=== PATIENT | female | born 1940 ===

== ENCOUNTER 2020-10-26 13:05 | IRF | payer MEDICARE, OTHER, SELFPAY ==
[2020-10-26 13:00] VITALS: BP 165/66; PULSE 80; RESP 20; TEMP 36.6; O2SAT 96; BMI 25.3
--- NOTE | 2020-10-26 13:33 | ADMGEN ---
This patient, Kelley Walker, was admitted to [facility] Room 225-01. Patient/family oriented to hospital policies and general routines including ID bracelet, bed and alarms, visiting hours, pain management, procedures, bathroom and other care routines, personal items, smoking policy, room service/diet, and visiting hours. Information on how to activate the Rapid Response Team has been discussed. Patient/Family are encouraged to report perceived risks to care and to ask questions if they do not understand what they are told or what they should do.
--- NOTE | 2020-10-26 15:16 | WPDREHABHP ---
H&P: HPI History of Present Illness Date/Time: 10/26/20 15:16 Chief Complaint: Lumbar myelopathy and radiculopathy left lower extremity Right footdrop Narrative: HISTORY OF PRESENT ILLNESS: The patient's primary rehab impairment category is neurological condition The etiologic diagnosis is lumbar radiculopathy I saw this patient [id number] on 10/26/2020 at 3:17 p.m. The patient is a 80-year-old female with past medical history of Parkinson's disease, bilateral carotid stenosis, hypertension, chronic back pain with radiculopathy to the LLE, right foot drop. Patient went to [facility] on 10/21/2020 for an elective spinal decompression. Workup revealed evidence of severe spinal stenosis affecting the T12 and L1 level. On 10/20/2020 the patient underwent a T11 through T12, T12-L1 posterior spinal decompression for central canal, lateral recess and foraminal stenosis. Patient also underwent a T12-L1 partial medial facetectomies. Hospital course patient received Ancef times 24 hours for postop. REGAN drain was removed on 10/22/2020. Postoperatively patient experienced acute blood loss anemia, acute postoperative pain, hypokalemia, leukocytosis, urinary retention, and postop encephalopathy. Patient is now hemodynamically stable, pain is being managed with oral medications. Hypokalemic is being monitored and repleted as necessary necessary. the urinary retention was treated with Flomax on 10/22/2020. Leukocytosis down trended was felt to be reactive. Postop confusion resolved. Patient will be discharged to rehab on aspirin 81 mg daily. Follow-up will be on 11/04/2020 at 11:[address] González JOE: The patient has not traveled outside the [place] are had contact with someone who is ill that his travel outside the [place] in the past 21 days. The patient has not traveled to an area of the [facility] that is experiencing no transmission of the Coronavirus and has not had close personal contact with anyone that has. Patient does not have a fever. The patient is not experiencing lower respiratory illness symptoms. Negative COVID test on 10/25/2020. Therapy was initiated at the acute care facility and the patient transferred to us from [facility] on 10/26/2020 FALLS OR SURGERIES: The patient has had major surgeries in the 100 days prior to admission. patient has T12-L1 posterior spinal decompression at [facility] on 10/20/2020. They had 2 falls in the past year. She had one fall with injury in the past year. Patient sustained a T9 rib fracture. PAST MEDICAL HISTORY: Parkinson's disease, dyskinesia, anxiety, hypertension, GERD, spinal stenosis with chronic back pain and lumbar radiculopathy, right footdrop, stage I diastolic function left ventricular ejection fraction of greater than 70%, coronary artery disease, arteriosclerotic heart disease, bilateral carotid stenosis, with left carotid stenosis being 50-69% right ICA stenosis of less than 50% stenosis, chronic bronchitis, osteoarthritis, hyperlipidemia, constipation, obstructive sleep apnea, history of falls, aortic valve sclerosis, sciatica, osteoarthritis of left ankle, stress incontinence of urine, myalgia, degenerative scoliosis, diverticulitis, abnormal stress test, cataracts, hearing loss, PAST SURGICAL HISTORY: back surgery 2010, cardiac catheterization 09/17/2020, cataract eye surgery, hysterectomy, tonsillectomy, and T11-L1 posterior spinal fusion on SOCIAL HISTORY: patient denies tobacco use, alcohol use, illicit drugs, the patient lives with her in a one-story home with 2 steps to enter. assisted with bathing and dressing for speed of completion. assisted with pulling up the pants during bathing and dressing. states that assistance was minimal to moderate assistance. assisted patients with steps requiring moderate assistance. FAMILY HISTORY: Mother had uterine cancer and heart
[2020-10-26] MEDS: DICYCLOMINE HCL 10 MG CAPSULE PO (17:09)
[2020-10-26] MEDS: ONDANSETRON HCL ODT 4 MG TABLET PO (17:09)
[2020-10-26] MEDS: CARBIDOPA/LEVODOPA 25/100 MG TABLET 2 TABLET PO (17:09)
[2020-10-26] MEDS: TAMSULOSIN HCL 0.4 MG CAPSULE PO (17:10)
[2020-10-26] MEDS: traMADol HCL (*CRX) 50 MG TABLET PO (17:24)
[2020-10-26] MEDS: ACETAMINOPHEN 500 MG TABLET 1000 MG PO ×2 (18:59→23:20)
[2020-10-26 20:40] VITALS: PULSE 66; RESP 16; O2SAT 98
[2020-10-26] MEDS: DOCUSATE SODIUM 100 MG CAPSULE PO (21:18)
[2020-10-26] MEDS: ASPIRIN 81 MG ENTERIC TABLET PO (21:18)
[2020-10-26] MEDS: ALPRAZolam (*CRX) 0.25 MG TABLET 0.5 MG PO (21:19)
[2020-10-26] MEDS: PARoxetine 20 MG TABLET PO (21:19)
[2020-10-26] MEDS: FAMOTIDINE 20 MG TABLET PO (21:19)
[2020-10-26] MEDS: ENOXAPARIN 30 MG/0.3 ML SYRINGE SUB-Q (21:19)
[2020-10-26 22:00] VITALS: BP 161/62; PULSE 66; RESP 16; TEMP 36.4; O2SAT 98
[2020-10-27 05:10] LABS: Basophils Percent Auto 0.4 % (0.2-1.2); Eosinophils Absolute Auto 0.2 K/mm3 (0-0.3); Hemoglobin 10.6 g/dL (12.0-15.0); Immature Granulocyte Absolute 0.01 K/mm3 (0.00-0.031); Immature Granulocyte Percent A 0.2 % (0-0.5); Lymphocytes Absolute Auto 2.19 K/mm3 (0.9-3.2); Mean Corpuscular HGB Conc 32.1 g/dl (32-36); Mean Corpuscular Hemoglobin 29.5 pg (26-34); Mean Corpuscular Volume 91.9 fl (80-100); Monocytes Absolute Auto 0.6 K/mm3 (0.1-0.6); Monocytes Percent Auto 12.8 % (2.6-8.5); Neutrophils Absolute Auto 1.7 K/mm3 (1.3-6.7); Neutrophils Percent Auto 35.6 % (45.5-73.1); Platelet Count Result 200 k/mm3 (150-375); Red Blood Count 3.59 M/mm3 (4.2-5.4); Red Cell Distribution Width 12.9 % (11.5-14.5); White Blood Count 4.8 K/mm3 (4.5-10.0)
[2020-10-27 05:19] LABS: Anion Gap 4 mmol/L (8-16); Blood Urea Nitrogen 10 mg/dL (7-17); Calcium 8.9 mg/dL (8.4-10.2); Carbon Dioxide 32 mmol/L (22-30); Chloride 104 mmol/L (98-107); Estimated Glomerular Filt Rate > 60; Glucose 98 mg/dL (65-105); Potassium 3.7 mmol/L (3.4-5.0); Sodium 140 mmol/L (137-145)
[2020-10-27] MEDS: ACETAMINOPHEN 500 MG TABLET 1000 MG PO ×4 (05:30→23:49)
[2020-10-27 05:44] VITALS: BP 151/61; PULSE 75; RESP 16; TEMP 36.2; O2SAT 98
[2020-10-27 08:00] VITALS: PULSE 75; RESP 16; O2SAT 98
[2020-10-27 09:48] VITALS: PULSE 75
[2020-10-27] MEDS: FAMOTIDINE 20 MG TABLET PO ×2 (09:48→20:33)
[2020-10-27] MEDS: atenoloL 25 MG TABLET PO (09:48)
[2020-10-27] MEDS: ISOSORBIDE MONONITRATE 15 MG TAB.ER.24H PO (09:49)
[2020-10-27] MEDS: DICYCLOMINE HCL 10 MG CAPSULE PO ×3 (09:49→17:00)
[2020-10-27] MEDS: PARoxetine 20 MG TABLET PO ×2 (09:49→20:34)
[2020-10-27] MEDS: OPTI-GEN TAB 1 TABLET PO (09:49)
[2020-10-27] MEDS: ATORVASTATIN 40 MG TABLET PO (09:49)
[2020-10-27] MEDS: LOSARTAN POTASSIUM 50 MG TABLET PO (09:49)
[2020-10-27] MEDS: CHOLECALCIFEROL 1,000 UNITS TABLET 1000 UNITS PO (09:49)
[2020-10-27] MEDS: ONDANSETRON HCL ODT 4 MG TABLET PO ×3 (09:50→17:00)
[2020-10-27] MEDS: MICONAZOLE NITRATE 2% CREAM 30 GM TUBE 1 APPLIC TOPICAL ×3 (09:50→17:05)
[2020-10-27] MEDS: CARBIDOPA/LEVODOPA 25/100 MG TABLET 2 TABLET PO ×3 (09:50→17:00)
[2020-10-27] MEDS: traMADol HCL (*CRX) 50 MG TABLET PO ×2 (09:55→20:34)
[2020-10-27] MEDS: polyethylene glycoL 3350 17 GM POWD.PACK PO (10:01)
--- NOTE | 2020-10-27 10:40 | WPDNEURORHBP ---
Subjective Date/time seen: 10/27/20 10:40 80-year-old female who underwent T11-L1 spinal decompression at [facility] julia to severe spinal stenosis at T12 and L1 Postop course was noted for confusion, blood loss anemia, postop pain, electrolyte imbalance,urinary retention patient was started on Flomax. patient has demonstrated ongoing urinary incontinence which is acute on chronic. Patient is to have a follow-up with Dr. Claudio at [facility] on 11/04/2020 at 11:45 a.m.. Past medical history significant for Parkinson's disease, bilateral carotid stenosis, hypertension, chronic back pain with radiculopathy and right footdrop, recent left lower extremity pain and weakness being present. Anxiety is elevated . last night, patient became very anxious and wanting to go home. was present and was able to come her down and she was willing to stay to complete the rehab course. Review of Systems Review of Systems: All systems reviewed & are unremarkable except as noted in HPI and below Exam Narrative: Exam Narrative: Head is normocephalic. Extraocular muscles are intact. Neck is supple. Lungs are clear to auscultation. Heart rate and rhythm is regular. Abdomen is obese. Bilateral upper extremity strength are 4-5 right lower extremity strength is 4- out of 5 except at the ankle being 0/5. Left lower extremity strength is 3+ to 4-. Mood is calm. Objective Data Vital Signs Vital Signs: Vital Signs - 24 hr 10/26/20 13:00 10/26/20 20:40 10/26/20 22:00 Temperature 36.6 C 36.4 C Pulse Rate 80 66 66 Respiratory Rate 20 16 16 Blood Pressure 165/66 H 161/62 H Pulse Oximetry 96 98 98 10/27/20 05:44 10/27/20 08:00 10/27/20 09:48 Temperature 36.2 C L Pulse Rate 75 75 75 Respiratory Rate 16 16 Blood Pressure 151/61 H Pulse Oximetry 98 98 Intake/Output Intake/Output: Intake & Output 10/24/20 10/25/20 10/26/20 10/27/20 23:59 23:59 23:59 23:59 Intake Total 120 240 Balance 120 240 Meds/Results Medications: Active Medications Generic Name Dose Route Start Last Admin Trade Name Freq PRN Reason Stop Dose Admin Acetaminophen 1,000 mg 10/26/20 18:00 10/27/20 05:30 Acetaminophen 500 Mg Tablet PO 1,000 mg Q6HR PARAG Administration Alprazolam 0.25 mg 10/26/20 15:02 Alprazolam (*Crx) 0.25 Mg Tablet PO HS PRN Anxiety Alprazolam 0.5 mg 10/26/20 15:02 10/26/20 21:19 Alprazolam (*Crx) 0.25 Mg Tablet PO 0.5 mg HS PRN Administration Anxiety Aspirin 81 mg 10/26/20 21:00 10/26/20 21:18 Aspirin 81 Mg Enteric Tablet PO 81 mg HS PARAG Administration Atenolol 25 mg 10/27/20 09:00 10/27/20 09:48 Atenolol 25 Mg Tablet PO 25 mg DAILY PARAG Administration Atorvastatin Calcium 40 mg 10/27/20 09:00 10/27/20 09:49 Atorvastatin 40 Mg Tablet PO 40 mg DAILY PARAG Administration Carbidopa/Levodopa 2 tablet 10/26/20 18:00 10/27/20 09:50 Carbidopa/Levodopa 25/100 Mg Tablet PO 2 tablet 0800,1200,1800 PARAG Administration Cyclobenzaprine HCl 5 mg 10/26/20 15:02 Cyclobenzaprine Hcl 5 Mg Tablet PO Q8H PRN Muscle Spasm Dicyclomine HCl 10 mg 10/26/20 17:00 10/27/20 09:49 Dicyclomine Hcl 10 Mg Capsule PO 10 mg 0800,1200,1700 PARAG Administration Docusate Sodium 100 mg 10/26/20 21:00 10/26/20 21:18 Docusate Sodium 100 Mg Capsule PO 100 mg HS PARAG Administration Enoxaparin Sodium 30 mg 10/26/20 21:00 10/26/20 21:19 Enoxaparin 30 Mg/0.3 Ml Syringe SUB-Q 30 mg HS PARAG Administration Famotidine 20 mg 10/26/20 21:00 10/27/20 09:48 Famotidine 20 Mg Tablet PO 20 mg Q12HR PARAG Administration Isosorbide Mononitrate 15 mg 10/27/20 09:00 10/27/20 09:49 Isosorbide Mononitrate 15 Mg Tab.Er.24h PO 15 mg DAILY PARAG Administration Losartan Potassium 50 mg 10/27/20 09:00 10/27/20 09:49 Losartan Potassium 50 Mg Tablet PO 50 mg DAILY PARAG Administration Miconazole Nitrate 1 a
[2020-10-27 13:13] VITALS: BMI 25.3
[2020-10-27 14:00] VITALS: BP 108/47; PULSE 65; RESP 16; TEMP 36.2; O2SAT 95
[2020-10-27] MEDS: TAMSULOSIN HCL 0.4 MG CAPSULE PO (17:00)
[2020-10-27] MEDS: ASPIRIN 81 MG ENTERIC TABLET PO (20:33)
[2020-10-27] MEDS: DOCUSATE SODIUM 100 MG CAPSULE PO (20:33)
[2020-10-27] MEDS: ENOXAPARIN 30 MG/0.3 ML SYRINGE SUB-Q (20:33)
[2020-10-27 20:35] VITALS: BP 144/51; PULSE 72; RESP 18; TEMP 35.9; O2SAT 99
[2020-10-27] MEDS: ALPRAZolam (*CRX) 0.25 MG TABLET PO (20:36)
[2020-10-27] MEDS: CYCLOBENZAPRINE HCL 5 MG TABLET PO (20:36)
[2020-10-28] MEDS: ACETAMINOPHEN 500 MG TABLET 1000 MG PO ×3 (05:18→17:48)
[2020-10-28 05:22] VITALS: BP 136/66; PULSE 76; RESP 18; TEMP 35.9; O2SAT 100
[2020-10-28] MEDS: CARBIDOPA/LEVODOPA 25/100 MG TABLET 2 TABLET PO ×3 (07:55→16:43)
[2020-10-28] MEDS: ONDANSETRON HCL ODT 4 MG TABLET PO ×3 (07:55→17:47)
[2020-10-28] MEDS: DICYCLOMINE HCL 10 MG CAPSULE PO ×3 (07:55→16:44)
[2020-10-28 08:28] VITALS: PULSE 74
[2020-10-28] MEDS: polyethylene glycoL 3350 17 GM POWD.PACK PO (08:28)
[2020-10-28] MEDS: atenoloL 25 MG TABLET PO (08:28)
[2020-10-28] MEDS: MICONAZOLE NITRATE 2% CREAM 30 GM TUBE 1 APPLIC TOPICAL ×3 (08:28→16:44)
[2020-10-28] MEDS: FAMOTIDINE 20 MG TABLET PO ×2 (08:28→19:45)
[2020-10-28] MEDS: PARoxetine 20 MG TABLET PO ×2 (08:28→19:45)
[2020-10-28] MEDS: ATORVASTATIN 40 MG TABLET PO (08:29)
[2020-10-28] MEDS: LOSARTAN POTASSIUM 50 MG TABLET PO (08:29)
[2020-10-28] MEDS: ISOSORBIDE MONONITRATE 15 MG TAB.ER.24H PO (08:29)
[2020-10-28] MEDS: OPTI-GEN TAB 1 TABLET PO (08:29)
[2020-10-28] MEDS: CHOLECALCIFEROL 1,000 UNITS TABLET 1000 UNITS PO (08:29)
[2020-10-28] MEDS: CYCLOBENZAPRINE HCL 5 MG TABLET PO (11:26)
--- NOTE | 2020-10-28 11:29 | PCSTNOTE ---
Please refer to the Bedside Swallow Evaluation in the EMR. Please note, silent aspiration cannot be ruled out at bedside.
--- NOTE | 2020-10-28 12:06 | WPDNEURORHBP ---
Subjective Date/time seen: 10/28/20 12:06 Interval history: this is a 80-year-old female with past medical history of Parkinson's disease bilateral carotid stenosis, hypertension, and chronic back pain with radiculopathy who presented to [facility] on 10/21/2020 for elective spinal decompression. Postoperatively patient experienced acute blood loss anemia, acute postoperative pain, hypokalemia, leukocytosis, urinary retention and confusion. Patient was started on Flomax on 10/22/2020 for urinary retention. patient remains anxious. Patient voices no other complaints. Review of Systems Review of Systems: All systems reviewed & are unremarkable except as noted in HPI and below Functional Status Ambulation Ability Ambulation Assistive Devices: Parallel Bars Exam Narrative: Exam Narrative: Patient is resting comfortably. Head is normocephalic. Tremors are improved from admission. Heart rate and rhythm is regular. Lungs are clear to auscultation. Abdomen is obese. Gait was 8 feet in parallel bars. Transfers are mod assist. Objective Data Vital Signs Vital Signs: Vital Signs - 24 hr 10/27/20 14:00 10/27/20 20:35 10/28/20 05:22 Temperature 36.2 C L 35.9 C L 35.9 C L Pulse Rate 65 72 76 Respiratory Rate 16 18 18 Blood Pressure 108/47 L 144/51 H 136/66 Pulse Oximetry 95 99 100 10/28/20 08:28 Temperature Pulse Rate 74 Respiratory Rate Blood Pressure Pulse Oximetry Intake/Output Intake/Output: Intake & Output 10/25/20 10/26/20 10/27/20 10/28/20 23:59 23:59 23:59 23:59 Intake Total 120 600 240 Balance 120 600 240 Meds/Results Medications: Active Medications Generic Name Dose Route Start Last Admin Trade Name Freq PRN Reason Stop Dose Admin Acetaminophen 1,000 mg 10/26/20 18:00 10/28/20 11:24 Acetaminophen 500 Mg Tablet PO 1,000 mg Q6HR PARAG Administration Alprazolam 0.25 mg 10/26/20 15:02 10/27/20 20:36 Alprazolam (*Crx) 0.25 Mg Tablet PO 0.25 mg HS PRN Administration Anxiety Alprazolam 0.5 mg 10/26/20 15:02 10/26/20 21:19 Alprazolam (*Crx) 0.25 Mg Tablet PO 0.5 mg HS PRN Administration Anxiety Aspirin 81 mg 10/26/20 21:00 10/27/20 20:33 Aspirin 81 Mg Enteric Tablet PO 81 mg HS PARAG Administration Atenolol 25 mg 10/27/20 09:00 10/28/20 08:28 Atenolol 25 Mg Tablet PO 25 mg DAILY PARAG Administration Atorvastatin Calcium 40 mg 10/27/20 09:00 10/28/20 08:29 Atorvastatin 40 Mg Tablet PO 40 mg DAILY PARAG Administration Carbidopa/Levodopa 2 tablet 10/28/20 07:00 10/28/20 11:24 Carbidopa/Levodopa 25/100 Mg Tablet PO 2 tablet 0700,1100,1600 PARAG Administration Cyclobenzaprine HCl 5 mg 10/26/20 15:02 10/28/20 11:26 Cyclobenzaprine Hcl 5 Mg Tablet PO 5 mg Q8H PRN Administration Muscle Spasm Dicyclomine HCl 10 mg 10/26/20 17:00 10/28/20 11:25 Dicyclomine Hcl 10 Mg Capsule PO 10 mg 0800,1200,1700 PARAG Administration Docusate Sodium 100 mg 10/26/20 21:00 10/27/20 20:33 Docusate Sodium 100 Mg Capsule PO 100 mg HS PARAG Administration Enoxaparin Sodium 30 mg 10/26/20 21:00 10/27/20 20:33 Enoxaparin 30 Mg/0.3 Ml Syringe SUB-Q 30 mg HS PARAG Administration Famotidine 20 mg 10/26/20 21:00 10/28/20 08:28 Famotidine 20 Mg Tablet PO 20 mg Q12HR PARAG Administration Isosorbide Mononitrate 15 mg 10/27/20 09:00 10/28/20 08:29 Isosorbide Mononitrate 15 Mg Tab.Er.24h PO 15 mg DAILY PARAG Administration Losartan Potassium 50 mg 10/27/20 09:00 10/28/20 08:29 Losartan Potassium 50 Mg Tablet PO 50 mg DAILY PARAG Administration Miconazole Nitrate 1 applic 10/26/20 17:00 10/28/20 08:28 Miconazole Nitrate 2% Cream 30 Gm Tube TOPICAL 1 applic TID PARAG Administration Multivitamins/Minerals 1 tablet 10/27/20 09:00 10/28/20 08:29 Opti-Gen Tab PO 1 tablet DAILY PARAG Administration Olopatadine HCl 1 drop 10/26/20 15:02 Olopatadi
[2020-10-28 14:00] VITALS: BP 136/45; PULSE 54; RESP 18; TEMP 36.4; O2SAT 96
--- NOTE | 2020-10-28 15:40 | RPD ---
INDIVIDUALIZED PLAN OF CARE FOR Kelley Walker Brief Synthesis of Pre-Admission Screen, Post-Admission Evaluation and Therapy Evaluations: The patient presents to rehab with Lumbar radiculopathy. Comorbidities include thoracolumbar spondylosis, thoracolumbar stenosis, myeloradiculopathy, Parkinson's disease, dyskinesia, anxiety, hypertension, GERD, spinal stenosis, stage 1 diastolic function LVEF >70%, CAD, COPD, osteoarthritis, hyperlipidemia, constipation, LORY, arteriosclerotic heart disease, bilateral carotid stenosis, mitral valve prolapse, stress incontinence of urine. . The patient requires physician services for medical oversight, management of post-op complications in setting of present comorbidities, and pain management. The patient requires nursing services for anticoagulation therapy, diabetes training, DVT prophylactics, infection protection, medication management and education, pressure relief, and wound care. Deficits include:ADLs, Balance, Endurance, Family Training/Education, Mobility, Pain Management, ROM, Safety, Strength, Transfers Developer Advocate/Case Management for: Discharge Planning and Patient/Family Counseling Physical Therapy: 5 days per week for 90 minutes for the anticipated length of stay. Treatments may include: Therapeutic Exercise, Gait Training, Neuromuscular Re-education, Transfer Training, Community Reintegration, Bed Mobility, Patient/Family Education, Wheelchair Mobility Group Therapy/Concurrent Therapy Rationales: -Improve attention span during functional activities in a distracted environment. -Enhance problem solving and/or adequate judgment skills during functional activities in a distracted environment. -Promote increased safety awareness in a distracted environment to reduce fall risk with functional tasks, transfers, and ambulation to allow a more safe, self-sufficient return to the home environment. -Improve dynamic balance skills to promote safety and independence with functional activities in a distracted environment for maximum gain. Occupational Therapy: 5 days per week for 90 minutes for the anticipated length of stay. Treatments may include: Therapeutic Exercise, Therapeutic Activity, Cognitive Training, Self-Care Transfer Training, Community Reintegration, Home Management, Patient/Family Education, Wheelchair Mobility Training, Energy Conservation Training Group Therapy/Concurrent Therapy Rationales: -Allow therapist to observe and teach generalization and carry-over of skills learned in individual therapy. -Enhance problem solving and sequencing skills during therapeutic activities in a distracted environment. -Promote increased safety awareness in a realistic setting to reduce fall risk with functional tasks due to visual and verbal distractions. -Increase functional level with ADLs, ADL transfers and use of adaptive equipment through therapeutic activities with others while promoting safety to allow a more safe, self-sufficient return home. Medical Prognosis: Good Anticipated Length of Stay: 10 days Rehab Goals: Eating Goal: 06-Independent Oral Hygiene Goal: 06-Independent Toileting Hygiene Goal: 04-Supervision or Touching Assistance Shower/Bathe Self Goal: 04-Supervision or Touching Assistance Upper Body Dressing Goal: 05-Setup or Clean Up Assistance Lower Body Dressing Goal: 04-Supervision or Touching Assistance Putting On/Taking Off Footwear Goal: 04-Supervision or Touching Assistance Rolling Left and Right Goal: 06-Independent Sit to Lying Goal: 06-Independent Lying to Sitting on Side of Bed Goal: 06-Independent Sit to Stand Goal: 04-Supervision or Touching Assistance Chair/Ueq-zv-Jdmld Transfer Goal: 04-Supervision or Touching Assistance Toilet Transfer Goal: 04-Supervision or Touching Assistance Car Transfer Goal: 04-Supervision or Touching Assistance Walk 10' Goal: 04-Supervision or Touching Assistance Walk 50' with Two Turns Goal: 04-Supervision or Touching Assistance Walk 150' Goal: 09-N
[2020-10-28] MEDS: TAMSULOSIN HCL 0.4 MG CAPSULE PO (17:47)
[2020-10-28] MEDS: traMADol HCL (*CRX) 50 MG TABLET PO (19:41)
[2020-10-28] MEDS: DOCUSATE SODIUM 100 MG CAPSULE PO (19:44)
[2020-10-28] MEDS: ENOXAPARIN 30 MG/0.3 ML SYRINGE SUB-Q (19:44)
[2020-10-28] MEDS: ASPIRIN 81 MG ENTERIC TABLET PO (19:45)
[2020-10-28 20:24] VITALS: BP 123/56; PULSE 56; RESP 18; TEMP 36.4; O2SAT 97
[2020-10-29] MEDS: ALPRAZolam (*CRX) 0.25 MG TABLET PO (00:44)
[2020-10-29] MEDS: ACETAMINOPHEN 500 MG TABLET 1000 MG PO ×4 (00:44→17:51)
[2020-10-29 05:23] VITALS: BP 140/56; PULSE 80; RESP 18; TEMP 36.5; O2SAT 100
[2020-10-29] MEDS: CYCLOBENZAPRINE HCL 5 MG TABLET PO ×4 (06:39→20:15)
[2020-10-29] MEDS: CARBIDOPA/LEVODOPA 25/100 MG TABLET 2 TABLET PO ×3 (06:39→16:28)
[2020-10-29 08:00] VITALS: PULSE 80; RESP 18; O2SAT 100
[2020-10-29 08:37] VITALS: PULSE 80
[2020-10-29] MEDS: FAMOTIDINE 20 MG TABLET PO ×2 (08:37→20:16)
[2020-10-29] MEDS: PARoxetine 20 MG TABLET PO ×2 (08:37→20:16)
[2020-10-29] MEDS: ONDANSETRON HCL ODT 4 MG TABLET PO ×3 (08:37→17:51)
[2020-10-29] MEDS: LOSARTAN POTASSIUM 50 MG TABLET PO (08:37)
[2020-10-29] MEDS: CHOLECALCIFEROL 1,000 UNITS TABLET 1000 UNITS PO (08:37)
[2020-10-29] MEDS: DICYCLOMINE HCL 10 MG CAPSULE PO ×3 (08:37→16:28)
[2020-10-29] MEDS: atenoloL 25 MG TABLET PO (08:37)
[2020-10-29] MEDS: ISOSORBIDE MONONITRATE 15 MG TAB.ER.24H PO (08:37)
[2020-10-29] MEDS: OPTI-GEN TAB 1 TABLET PO (08:38)
[2020-10-29] MEDS: polyethylene glycoL 3350 17 GM POWD.PACK PO (08:38)
[2020-10-29] MEDS: ATORVASTATIN 40 MG TABLET PO (08:38)
[2020-10-29] MEDS: MICONAZOLE NITRATE 2% CREAM 30 GM TUBE 1 APPLIC TOPICAL ×3 (08:38→16:28)
--- NOTE | 2020-10-29 12:11 | WPDNEURORHBP ---
Subjective Date/time seen: 10/29/20 12:11 Interval history: this is a 80-year-old female with past medical history of Parkinson's disease bilateral carotid stenosis, hypertension, and chronic back pain with radiculopathy who presented to [facility] on 10/21/2020 for elective spinal decompression. Postoperatively patient experienced acute blood loss anemia, acute postoperative pain, hypokalemia, leukocytosis, urinary retention and confusion. Patient was started on Flomax on 10/22/2020 for urinary retention. Patient complains of bilateral hip pain left worse than right. Patient admits to muscle spasm and pain. Review of Systems Review of Systems: All systems reviewed & are unremarkable except as noted in HPI and below Constitutional: Constitutional: Reports frequent falls, Reports headache(s) and Reports weakness ENT: Reports headache(s) Cardiovascular: Cardiovascular: Reports dyspnea on exertion Respiratory: Respiratory: Reports as per HPI and Reports dyspnea on exertion Genitourinary: Genitourinary: Reports urinary incontinence and Reports urinary urgency Musculoskeletal: Musculoskeletal: Reports abnormal gait, Reports back pain, Reports myalgias and Reports muscle weakness Integumentary/Breasts: Skin/Breast: Reports system reviewed and no additional complaints, except as docu Neurologic: Reports Neuro-related abnormal movements, Reports abnormal gait, Reports frequent falls, Reports headache(s) and Reports weakness Psychiatric: Psychiatric: Reports anxiety Functional Status Ambulation Ability Ambulation Assistive Devices: Parallel Bars Exam Narrative: Exam Narrative: Head is normocephalic. External ocular muscles are intact. Neck is supple. Heart rate and rhythm is regular. Lungs are clear to auscultation. Abdomen is obese. Bilateral upper extremity strength are 4/5. Right lower extremity reveals a right footdrop. Left lower extremity strength is 3-4 throughout. Patient is unable to sit still due to pain and spasm. Parkinson's tremors are minimal. But patient has writhing-like movement patient's transfers are moderate assistance. Objective Data Vital Signs Vital Signs: Vital Signs - 24 hr 10/28/20 14:00 10/28/20 20:24 10/29/20 05:23 Temperature 36.4 C L 36.4 C 36.5 C Pulse Rate 54 L 56 L 80 Respiratory Rate 18 18 18 Blood Pressure 136/45 L 123/56 L 140/56 L Pulse Oximetry 96 97 100 10/29/20 08:37 Temperature Pulse Rate 80 Respiratory Rate Blood Pressure Pulse Oximetry Intake/Output Intake/Output: Intake & Output 10/26/20 10/27/20 10/28/20 10/29/20 23:59 23:59 23:59 23:59 Intake Total 120 600 720 120 Balance 120 600 720 120 Meds/Results Medications: Active Medications Generic Name Dose Route Start Last Admin Trade Name Arielq PRN Reason Stop Dose Admin Acetaminophen 1,000 mg 10/26/20 18:00 10/29/20 11:36 Acetaminophen 500 Mg Tablet PO 1,000 mg Q6HR PARAG Administration Alprazolam 0.25 mg 10/26/20 15:02 10/29/20 00:44 Alprazolam (*Crx) 0.25 Mg Tablet PO 0.25 mg HS PRN Administration Anxiety Alprazolam 0.5 mg 10/26/20 15:02 10/26/20 21:19 Alprazolam (*Crx) 0.25 Mg Tablet PO 0.5 mg HS PRN Administration Anxiety Aspirin 81 mg 10/26/20 21:00 10/28/20 19:45 Aspirin 81 Mg Enteric Tablet PO 81 mg HS PARAG Administration Atenolol 25 mg 10/27/20 09:00 10/29/20 08:37 Atenolol 25 Mg Tablet PO 25 mg DAILY PARAG Administration Atorvastatin Calcium 40 mg 10/27/20 09:00 10/29/20 08:38 Atorvastatin 40 Mg Tablet PO 40 mg DAILY PARAG Administration Carbidopa/Levodopa 2 tablet 10/28/20 07:00 10/29/20 11:35 Carbidopa/Levodopa 25/100 Mg Tablet PO 2 tablet 0700,1100,1600 PARAG Administration Cyclobenzaprine HCl 5 mg 10/29/20 10:36 Cyclobenzaprine Hcl 5 Mg Tablet PO Q8H PRN Muscle Spasm Cyclobenzaprine HCl 5 mg 10/29/20 11:30 10/29/20 10:35 Cyclobenzaprine Hcl 5 Mg Tablet PO 5
[2020-10-29 14:00] VITALS: BP 137/84; PULSE 84; RESP 18; TEMP 36.5; O2SAT 96
--- NOTE | 2020-10-29 14:48 | PC.NURSE ---
Dr. Arreola wanted an MRI of cervical spine done today but patient is refusing. Patient states she does not want the MRI today. Wants to wait. Notified Dr. Arreola and will continue to monitor.
--- NOTE | 2020-10-29 14:50 | WPDNEURCNPN ---
Assessment and Plan Assessment and plan (1) Lumbar myelopathy: Code(s): G95.9 - Disease of spinal cord, unspecified Status: Acute (2) S/P spinal fusion: Code(s): Z98.1 - Arthrodesis status Status: Acute (3) Footdrop: Code(s): M21.379 - Foot drop, unspecified foot Status: Acute (4) Parkinsons disease: Code(s): G20 - Parkinson's disease Status: Acute Additional Plan elderly lady with Parkinson's disease receiving carbidopa levodopa 2502 tabs 3 times a day there is no obvious evidence of dyskinesia considering the history of right footdrop I wanted to make sure that we rule out the possibility of cervical myelopathy but at this stage patient is reluctant to have the MRI of cervical spine we will defer the treatment will be continued as such Consult date: 10/29/20 Time Seen: 14:00 HPI: Kelley Walker is a 80 year old female 80 years old lady has been admitted to [facility] rehab floor under the care of Dr. candida Morris with the diagnosis of lumbar myelopathy and radiculopathy of left lower extremity in addition to the comorbid condition of 1. Parkinson disease 2. Bilateral carotid stenosis 3. Hypertension 4. Chronic back and 5. Right foot drop patient has undergone elective spinal decompression at [facility] see neuro consultation has been obtained because of the underlying Parkinson disease and also complains of intermittent spasm. patient is receiving aspirin 81 mg daily with atorvastatin 40 mg daily and carbidopa levodopa 2 tablets 3 times a day each 25/100 mg Review of Systems Review of Systems: All systems reviewed & are unremarkable except as noted in HPI and below PMFSH Family History Family History Father Glaucoma (increased eye pressure) Mother Hypertension Social History Social History Alcohol intake: never Substance use: never Spiritual care concerns: No Meds Home Medications and Allergies Home Medications Medication Instructions Recorded Confirmed Type acetaminophen 1,000 mg PO Q6H 10/26/20 10/26/20 History alprazolam 0.25 mg PO HS PRN 10/26/20 10/26/20 History alprazolam 0.5 mg PO HS PRN 10/26/20 10/26/20 History aspirin 81 mg PO HS 10/26/20 10/26/20 History atenolol 25 mg PO DAILY 10/26/20 10/26/20 History atorvastatin 40 mg PO DAILY 10/26/20 10/26/20 History carbidopa-levodopa 2 tablet PO TIDWM 10/26/20 10/26/20 History cholecalciferol (vitamin D3) 25 mcg PO DAILY 10/26/20 10/26/20 History cyclobenzaprine 5 mg PO Q8H PRN 10/26/20 10/26/20 History dicyclomine 10 mg PO TID 10/26/20 10/26/20 History docusate sodium 100 mg PO HS 10/26/20 10/26/20 History enoxaparin 30 mg SUBCUT HS 10/26/20 10/26/20 History famotidine 20 mg PO Q12H 10/26/20 10/26/20 History fish oil-dha-epa 1 cap PO DAILY 10/26/20 10/26/20 History isosorbide mononitrate 15 mg PO DAILY 10/26/20 10/26/20 History losartan 50 mg PO DAILY 10/26/20 10/26/20 History nystatin 1 applic TOPICAL TID 10/26/20 10/26/20 History olopatadine 1 drp EACH EYE HS PRN 10/26/20 10/26/20 History ondansetron 4 mg PO TID 10/26/20 10/26/20 History paroxetine HCl 20 mg PO Q12H 10/26/20 10/26/20 History polyethylene glycol 3350 17 g PO DAILY 10/26/20 10/26/20 History tamsulosin 0.4 mg PO QPM 10/26/20 10/26/20 History tramadol 50 mg PO Q6H PRN 10/26/20 10/26/20 History vit C,B-Pc-bbkzi-lutein-zeaxan 1 cap PO DAILY 10/26/20 10/26/20 History [Ocuvite Lutein and Zeaxanthin] Allergies Allergy/AdvReac Type Severity Reaction Status Date / Time clarithromycin Allergy Other Verified 10/26/20 13:35 oxycodone Allergy Hallucinati Verified 10/26/20 13:35 ng prednisone Allergy Other Verified 10/26/20 13:35 Vital Signs Vital Signs - 24 hr 10/28/20 20:24 10/29/20 05:23 10/29/20 08:00 Temperature 36.4 C 36.5 C Pulse Rate 56 L 80 80 Respiratory Rate 18 18 18 Blood Pressure 123/56 L 140/56 L Pulse Oximetry 97 10
[2020-10-29] MEDS: TAMSULOSIN HCL 0.4 MG CAPSULE PO (17:52)
[2020-10-29] MEDS: ASPIRIN 81 MG ENTERIC TABLET PO (20:15)
[2020-10-29] MEDS: DOCUSATE SODIUM 100 MG CAPSULE PO (20:15)
[2020-10-29] MEDS: ENOXAPARIN 30 MG/0.3 ML SYRINGE SUB-Q (20:16)
[2020-10-29] MEDS: traMADol HCL (*CRX) 50 MG TABLET PO (20:17)
[2020-10-29] MEDS: ALPRAZolam (*CRX) 0.25 MG TABLET 0.5 MG PO (20:17)
[2020-10-29 22:00] VITALS: BP 129/47; PULSE 62; RESP 14; TEMP 36.2; O2SAT 96
[2020-10-30] MEDS: ACETAMINOPHEN 500 MG TABLET 1000 MG PO ×4 (00:19→16:59)
[2020-10-30 04:57] VITALS: BP 148/61; PULSE 64; RESP 16; TEMP 36.1; O2SAT 98
[2020-10-30] MEDS: CYCLOBENZAPRINE HCL 5 MG TABLET PO ×4 (06:45→20:56)
[2020-10-30] MEDS: CARBIDOPA/LEVODOPA 25/100 MG TABLET 2 TABLET PO ×3 (06:45→16:58)
[2020-10-30 08:00] VITALS: PULSE 64; RESP 16; O2SAT 98
[2020-10-30] MEDS: LOSARTAN POTASSIUM 50 MG TABLET PO (08:31)
[2020-10-30] MEDS: ATORVASTATIN 40 MG TABLET PO (08:31)
[2020-10-30] MEDS: FAMOTIDINE 20 MG TABLET PO ×2 (08:31→20:54)
[2020-10-30] MEDS: DICYCLOMINE HCL 10 MG CAPSULE PO ×3 (08:31→16:59)
[2020-10-30] MEDS: CHOLECALCIFEROL 1,000 UNITS TABLET 1000 UNITS PO (08:31)
[2020-10-30 08:32] VITALS: PULSE 64
[2020-10-30] MEDS: OPTI-GEN TAB 1 TABLET PO (08:32)
[2020-10-30] MEDS: atenoloL 25 MG TABLET PO (08:32)
[2020-10-30] MEDS: ONDANSETRON HCL ODT 4 MG TABLET PO ×3 (08:32→17:00)
[2020-10-30] MEDS: ISOSORBIDE MONONITRATE 15 MG TAB.ER.24H PO (08:32)
[2020-10-30] MEDS: PARoxetine 20 MG TABLET PO ×2 (08:33→20:54)
[2020-10-30] MEDS: polyethylene glycoL 3350 17 GM POWD.PACK PO (08:33)
[2020-10-30] MEDS: traMADol HCL (*CRX) 50 MG TABLET PO ×2 (08:50→20:56)
--- NOTE | 2020-10-30 10:10 | WPDNEURORHBP ---
Subjective Date/time seen: 10/30/20 10:10 Interval history: this is a 80-year-old female with past medical history of Parkinson's disease bilateral carotid stenosis, hypertension, and chronic back pain with radiculopathy who presented to [facility] on 10/21/2020 for elective spinal decompression. Postoperatively patient experienced acute blood loss anemia, acute postoperative pain, hypokalemia, leukocytosis, urinary retention and confusion. Patient was started on Flomax on 10/22/2020 for urinary retention. Patient complains of bilateral hip pain left worse than right. Patient admits to muscle spasm and pain. Patient's dyskinesia elicits pain to surgical site. Dr Arreola has been consulted. Review of Systems Review of Systems: All systems reviewed & are unremarkable except as noted in HPI and below Constitutional: Constitutional: Reports frequent falls, Reports headache(s) and Reports weakness ENT: Reports headache(s) Cardiovascular: Cardiovascular: Reports dyspnea on exertion Respiratory: Respiratory: Reports as per HPI and Reports dyspnea on exertion Genitourinary: Genitourinary: Reports urinary incontinence and Reports urinary urgency Musculoskeletal: Musculoskeletal: Reports abnormal gait, Reports back pain, Reports myalgias and Reports muscle weakness Integumentary/Breasts: Skin/Breast: Reports system reviewed and no additional complaints, except as docu Neurologic: Reports Neuro-related abnormal movements, Reports abnormal gait, Reports frequent falls, Reports headache(s), Reports Sensory deficit (Neuro) ( distally) and Reports weakness Psychiatric: Psychiatric: Reports anxiety Functional Status Ambulation Ability Ambulation Assistive Devices: Parallel Bars Exam Narrative: Exam Narrative: Head is normocephalic. External ocular muscles are intact. Neck is supple. Heart rate and rhythm is regular. Lungs are clear to auscultation. Abdomen is obese. Bilateral upper extremity strength are 4/5. Right lower extremity reveals a right footdrop. Left lower extremity strength is 3-4 throughout. Patient's PD is better controlled this morning. Back pain is less Const: General: cooperative, comfortable and no acute distress Nutritional Appearance: average body habitus Orientation/consciousness: oriented to person, oriented to place, oriented to time and patient oriented x3 HENMT: Head: normocephalic Ears: hearing grossly normal bilaterally General nose exam: Normal external nose present Mouth: Yes Normal oral and palatal mucosa present Eyes: Visual Robert: normal visual robert by confrontation Alignment and Position: alignment normal Eyelids: eyelids normal Conjunctivae: conjunctivae normal Sclera: sclerae normal Cornea: corneas normal Pupils: Equal, round and reactive pupils present Neck: Neck: full ROM and no lymphadenopathy Chest: Chest palpation & inspection: normal inspection of the chest Resp: Effort & Inspection: normal respiratory effort Auscultation: clear to auscultation bilaterally Cardio: Rate: regular rate Rhythm: regular rhythm Neuro: General: oriented to person, oriented to place, oriented to time, patient oriented x3, moves all extremities and Unable to assess gait Cranial nerves: Yes CN's II-XII intact bilaterally and Yes Equal, round and reactive pupils present Speech: normal speech Gait exam (Neuro): Unable to assess gait Motor exam (neuro): Abnormal motor strength present ( right foot drop) Sensory Exam: Sensory deficit (Neuro) ( distally) Deep tendon reflexes (DTR's): Right triceps reflex intensity grade: 1+, Left triceps reflex intensity grade: 1+, Rt Biceps (C5, C6): 1+, Left biceps reflex intensity grade: 1+, Right brachioradialis reflex intensity grade: 1+, Left brachioradialis reflex intensity grade: 1+, Right patellar reflex intensity grade: 1+ and Left patellar reflex intensity grade: 1+ Plantar Reflex Responses: equivocal: bilateral Psych: Appearance: grossly normal Ob
[2020-10-30 14:00] VITALS: BP 143/55; PULSE 74; RESP 16; TEMP 36.5; O2SAT 97
[2020-10-30] MEDS: TAMSULOSIN HCL 0.4 MG CAPSULE PO (17:01)
[2020-10-30] MEDS: ALPRAZolam (*CRX) 0.25 MG TABLET 0.5 MG PO (20:53)
[2020-10-30] MEDS: ASPIRIN 81 MG ENTERIC TABLET PO (20:54)
[2020-10-30] MEDS: DOCUSATE SODIUM 100 MG CAPSULE PO (20:54)
[2020-10-30] MEDS: ENOXAPARIN 30 MG/0.3 ML SYRINGE SUB-Q (20:54)
[2020-10-30 20:55] VITALS: PULSE 96
[2020-10-30 22:00] VITALS: BP 146/55; PULSE 70; RESP 18; TEMP 36.2; O2SAT 96
[2020-10-31] MEDS: ACETAMINOPHEN 500 MG TABLET 1000 MG PO ×5 (00:19→23:58)
[2020-10-31 06:00] VITALS: BP 147/86; PULSE 70; RESP 18; TEMP 36.3; O2SAT 99
[2020-10-31] MEDS: DICYCLOMINE HCL 10 MG CAPSULE PO ×3 (07:57→16:49)
[2020-10-31] MEDS: CARBIDOPA/LEVODOPA 25/100 MG TABLET 2 TABLET PO ×3 (07:57→15:55)
[2020-10-31] MEDS: CYCLOBENZAPRINE HCL 5 MG TABLET PO ×4 (07:57→20:44)
[2020-10-31] MEDS: ONDANSETRON HCL ODT 4 MG TABLET PO ×3 (07:57→17:51)
[2020-10-31] MEDS: traMADol HCL (*CRX) 50 MG TABLET PO ×3 (08:15→20:50)
[2020-10-31 08:16] VITALS: PULSE 85
[2020-10-31] MEDS: ISOSORBIDE MONONITRATE 15 MG TAB.ER.24H PO (08:16)
[2020-10-31] MEDS: PARoxetine 20 MG TABLET PO ×2 (08:16→20:44)
[2020-10-31] MEDS: ATORVASTATIN 40 MG TABLET PO (08:16)
[2020-10-31] MEDS: FAMOTIDINE 20 MG TABLET PO ×2 (08:16→20:43)
[2020-10-31] MEDS: CHOLECALCIFEROL 1,000 UNITS TABLET 1000 UNITS PO (08:16)
[2020-10-31] MEDS: atenoloL 25 MG TABLET PO (08:16)
[2020-10-31] MEDS: OPTI-GEN TAB 1 TABLET PO (08:16)
[2020-10-31] MEDS: LOSARTAN POTASSIUM 50 MG TABLET PO (08:17)
[2020-10-31] MEDS: polyethylene glycoL 3350 17 GM POWD.PACK PO (08:17)
[2020-10-31] MEDS: MICONAZOLE NITRATE 2% CREAM 30 GM TUBE 1 APPLIC TOPICAL ×3 (08:17→16:50)
--- NOTE | 2020-10-31 08:33 | WPDNEURORHBP ---
Subjective Date/time seen: 10/31/20 08:33 Interval history: this is a 80-year-old female with past medical history of Parkinson's disease bilateral carotid stenosis, hypertension, and chronic back pain with radiculopathy who presented to [facility] on 10/21/2020 for elective spinal decompression. Postoperatively patient experienced acute blood loss anemia, acute postoperative pain, hypokalemia, leukocytosis, urinary retention and confusion. Patient was started on Flomax on 10/22/2020 for urinary retention. Patient complains of bilateral hip pain left worse than right. Patient admits to muscle spasm and pain. Patient's dyskinesia elicits pain to surgical site. Dr Arreola has been consulted. Pain is slightly better during rest but is elevated during therapy Review of Systems Review of Systems: All systems reviewed & are unremarkable except as noted in HPI and below Constitutional: Constitutional: Reports frequent falls, Reports headache(s) and Reports weakness ENT: Reports headache(s) Cardiovascular: Cardiovascular: Reports dyspnea on exertion Respiratory: Respiratory: Reports as per HPI and Reports dyspnea on exertion Genitourinary: Genitourinary: Reports urinary incontinence and Reports urinary urgency Musculoskeletal: Musculoskeletal: Reports abnormal gait, Reports back pain, Reports myalgias and Reports muscle weakness Integumentary/Breasts: Skin/Breast: Reports system reviewed and no additional complaints, except as docu Neurologic: Reports Neuro-related abnormal movements, Reports abnormal gait, Reports frequent falls, Reports headache(s), Reports Sensory deficit (Neuro) ( distally) and Reports weakness Psychiatric: Psychiatric: Reports anxiety Functional Status Ambulation Ability Ambulation Assistive Devices: Parallel Bars Exam Narrative: Exam Narrative: Head is normocephalic. External ocular muscles are intact. Neck is supple. Heart rate and rhythm is regular. Lungs are clear to auscultation. Abdomen is obese. Bilateral upper extremity strength are 4/5. Right lower extremity reveals a right footdrop. Left lower extremity strength is 3-4 throughout. Patient's PD is better controlled this morning. Back pain is less Const: General: cooperative, comfortable and no acute distress Nutritional Appearance: average body habitus Orientation/consciousness: oriented to person, oriented to place, oriented to time and patient oriented x3 HENMT: Head: normocephalic Ears: hearing grossly normal bilaterally General nose exam: Normal external nose present Mouth: Yes Normal oral and palatal mucosa present Eyes: Visual Robert: normal visual robert by confrontation Alignment and Position: alignment normal Eyelids: eyelids normal Conjunctivae: conjunctivae normal Sclera: sclerae normal Cornea: corneas normal Pupils: Equal, round and reactive pupils present Neck: Neck: full ROM and no lymphadenopathy Chest: Chest palpation & inspection: normal inspection of the chest Resp: Effort & Inspection: normal respiratory effort Auscultation: clear to auscultation bilaterally Cardio: Rate: regular rate Rhythm: regular rhythm Neuro: General: oriented to person, oriented to place, oriented to time, patient oriented x3, moves all extremities and Unable to assess gait Cranial nerves: Yes CN's II-XII intact bilaterally and Yes Equal, round and reactive pupils present Speech: normal speech Gait exam (Neuro): Unable to assess gait Motor exam (neuro): Abnormal motor strength present ( right foot drop) Sensory Exam: Sensory deficit (Neuro) ( distally) Deep tendon reflexes (DTR's): Right triceps reflex intensity grade: 1+, Left triceps reflex intensity grade: 1+, Rt Biceps (C5, C6): 1+, Left biceps reflex intensity grade: 1+, Right brachioradialis reflex intensity grade: 1+, Left brachioradialis reflex intensity grade: 1+, Right patellar reflex intensity grade: 1+ and Left patellar reflex intensity grade: 1+ Plantar Reflex Resp
[2020-10-31] MEDS: ALPRAZolam (*CRX) 0.25 MG TABLET PO (11:28)
[2020-10-31 14:00] VITALS: BP 98/50; PULSE 60; RESP 16; TEMP 36; O2SAT 97
[2020-10-31] MEDS: TAMSULOSIN HCL 0.4 MG CAPSULE PO (17:51)
[2020-10-31] MEDS: ENOXAPARIN 30 MG/0.3 ML SYRINGE SUB-Q (20:43)
[2020-10-31] MEDS: DOCUSATE SODIUM 100 MG CAPSULE PO (20:45)
[2020-10-31] MEDS: ASPIRIN 81 MG ENTERIC TABLET PO (20:45)
[2020-10-31 22:00] VITALS: BP 142/50; PULSE 68; RESP 16; TEMP 36; O2SAT 98
[2020-11-01 06:00] VITALS: BP 163/55; PULSE 76; RESP 16; TEMP 36.6; O2SAT 100
[2020-11-01] MEDS: ACETAMINOPHEN 500 MG TABLET 1000 MG PO ×4 (06:03→23:20)
[2020-11-01] MEDS: CARBIDOPA/LEVODOPA 25/100 MG TABLET 2 TABLET PO ×3 (06:03→16:08)
[2020-11-01] MEDS: CYCLOBENZAPRINE HCL 5 MG TABLET PO ×4 (06:05→21:06)
[2020-11-01 07:53] VITALS: PULSE 76
[2020-11-01] MEDS: ATORVASTATIN 40 MG TABLET PO (07:53)
[2020-11-01] MEDS: ONDANSETRON HCL ODT 4 MG TABLET PO ×3 (07:53→17:15)
[2020-11-01] MEDS: DICYCLOMINE HCL 10 MG CAPSULE PO ×3 (07:53→17:15)
[2020-11-01] MEDS: atenoloL 25 MG TABLET PO (07:53)
[2020-11-01] MEDS: OPTI-GEN TAB 1 TABLET PO (07:53)
[2020-11-01] MEDS: MICONAZOLE NITRATE 2% CREAM 30 GM TUBE 1 APPLIC TOPICAL ×2 (07:54→12:02)
[2020-11-01] MEDS: ISOSORBIDE MONONITRATE 15 MG TAB.ER.24H PO (07:54)
[2020-11-01] MEDS: FAMOTIDINE 20 MG TABLET PO ×2 (07:54→21:07)
[2020-11-01] MEDS: CHOLECALCIFEROL 1,000 UNITS TABLET 1000 UNITS PO (07:54)
[2020-11-01] MEDS: PARoxetine 20 MG TABLET PO ×2 (07:54→21:07)
[2020-11-01] MEDS: LOSARTAN POTASSIUM 50 MG TABLET PO (07:54)
[2020-11-01] MEDS: polyethylene glycoL 3350 17 GM POWD.PACK PO (07:55)
[2020-11-01] MEDS: traMADol HCL (*CRX) 50 MG TABLET PO ×3 (07:57→20:12)
[2020-11-01 08:00] VITALS: PULSE 76; RESP 16; O2SAT 100
--- NOTE | 2020-11-01 11:06 | WPDNEURORHBP ---
Subjective Date/time seen: 11/01/20 11:06 Interval history: this is a 80-year-old female with past medical history of Parkinson's disease bilateral carotid stenosis, hypertension, and chronic back pain with radiculopathy who presented to [facility] on 10/21/2020 for elective spinal decompression. Postoperatively patient experienced acute blood loss anemia, acute postoperative pain, hypokalemia, leukocytosis, urinary retention and confusion. Patient was started on Flomax on 10/22/2020 for urinary retention. Patient complains of bilateral hip pain left worse than right. Patient admits to muscle spasm and pain. Pain is improving with Flexeril and Ultram Patient's dyskinesia elicits pain to surgical site. Dr Arreola has been consulted. Pain is slightly better during rest but is elevated during therapy Patient seen during ADLS . Patient denied pain at this time. Review of Systems Review of Systems: All systems reviewed & are unremarkable except as noted in HPI and below Functional Status Ambulation Ability Ability to Ambulate 10 Feet: Minimum Assistance X 2 Ambulation Assistive Devices: Walker, Wheeled Exam Narrative: Exam Narrative: Head is normocephalic. External ocular muscles are intact. Neck is supple. Heart rate and rhythm is regular. Lungs are clear to auscultation. Abdomen is obese. Bilateral upper extremity strength are 4/5. Right lower extremity reveals a right footdrop. Left lower extremity strength is 3-4 throughout. Patient's PD is better controlled this morning. Back pain is less. Patient's overall endurance is better. Psych: Appearance: grossly normal Objective Data Vital Signs Vital Signs: Vital Signs - 24 hr 10/31/20 14:00 10/31/20 22:00 11/01/20 06:00 Temperature 36.0 C L 36.0 C L 36.6 C Pulse Rate 60 68 76 Respiratory Rate 16 16 16 Blood Pressure 98/50 L 142/50 H 163/55 H Pulse Oximetry 97 98 100 11/01/20 07:53 11/01/20 08:00 Temperature Pulse Rate 76 76 Respiratory Rate 16 Blood Pressure Pulse Oximetry 100 Intake/Output Intake/Output: Intake & Output 10/29/20 10/30/20 10/31/20 11/01/20 23:59 23:59 23:59 23:59 Intake Total 338 261 3299 Balance 796 562 2306 Meds/Results Medications: Active Medications Generic Name Dose Route Start Last Admin Trade Name Fallon PRN Reason Stop Dose Admin Acetaminophen 1,000 mg 10/26/20 18:00 11/01/20 06:03 Acetaminophen 500 Mg Tablet PO 1,000 mg Q6HR PARAG Administration Alprazolam 0.25 mg 10/26/20 15:02 10/31/20 11:28 Alprazolam (*Crx) 0.25 Mg Tablet PO 0.25 mg HS PRN Administration Anxiety Alprazolam 0.5 mg 10/26/20 15:02 10/30/20 20:53 Alprazolam (*Crx) 0.25 Mg Tablet PO 0.5 mg HS PRN Administration Anxiety Aspirin 81 mg 10/26/20 21:00 10/31/20 20:45 Aspirin 81 Mg Enteric Tablet PO 81 mg HS PARAG Administration Atenolol 25 mg 10/27/20 09:00 11/01/20 07:53 Atenolol 25 Mg Tablet PO 25 mg DAILY PARAG Administration Atorvastatin Calcium 40 mg 10/27/20 09:00 11/01/20 07:53 Atorvastatin 40 Mg Tablet PO 40 mg DAILY PARAG Administration Carbidopa/Levodopa 2 tablet 10/28/20 07:00 11/01/20 06:03 Carbidopa/Levodopa 25/100 Mg Tablet PO 2 tablet 0700,1100,1600 PARAG Administration Cyclobenzaprine HCl 5 mg 10/29/20 10:36 Cyclobenzaprine Hcl 5 Mg Tablet PO Q8H PRN Muscle Spasm Cyclobenzaprine HCl 5 mg 10/29/20 11:30 11/01/20 06:05 Cyclobenzaprine Hcl 5 Mg Tablet PO 5 mg ACHS PARAG Administration Dicyclomine HCl 10 mg 10/26/20 17:00 11/01/20 07:53 Dicyclomine Hcl 10 Mg Capsule PO 10 mg 0800,1200,1700 PARAG Administration Docusate Sodium 100 mg 10/26/20 21:00 10/31/20 20:45 Docusate Sodium 100 Mg Capsule PO 100 mg HS PARAG Administration Enoxaparin Sodium 30 mg 10/26/20 21:00 10/31/20 20:43 Enoxaparin 30 Mg/0.3 Ml Syringe SUB-Q 30 mg HS PARAG Administration Famotidine 20 mg 10/26/20 21:00 0
--- NOTE | 2020-11-01 12:49 | PCDIET ---
Nutrition Follow-Up Complete: No nutrition diagnosis at this time. Nutrition Goal: Patient to consume 75% of meals or greater. Goal met. Patient consuming 75-100% of most meals and reports good appetite. Regular diet remains appropriate. Last recorded weight is 56.9 kg. Recommend obtaining weekly weight. Bowel Motility: Last documented BM on 10/30/20. Labs Reviewed: No new labs available. Meds Noted: Tenormin, Lipitor, Sinemet, Bentyl, Colace, Pepcid, Cozaar, Ocuvite, Miralax, Vitamin D Additional Notes: Dressing to lower back incision. No documented pressure sores. Will continue to monitor with same goal. Nutrition Monitoring and Evaluation: Follow up in 7 days.
[2020-11-01 14:00] VITALS: BP 156/65; PULSE 78; RESP 18; TEMP 36.2; O2SAT 99
[2020-11-01] MEDS: TAMSULOSIN HCL 0.4 MG CAPSULE PO (17:15)
--- NOTE | 2020-11-01 17:19 | PCPTNOTE ---
Kelley Walker was evaluated for a 2 wheeled walker on 11/01/2020 by this physical therapist. The 2 wheeled walker will resolve patient's mobility limitations and will be used for ADL's within the home. The patient can safely use the 2 wheeled walker. ?The 2 wheeled walker will resolve the patient?s mobility deficits, including decreased balance, endurance, and B LE strength.
[2020-11-01 20:15] VITALS: BP 137/49; PULSE 70; RESP 20; TEMP 36.5; O2SAT 95
[2020-11-01] MEDS: DOCUSATE SODIUM 100 MG CAPSULE PO (21:06)
[2020-11-01] MEDS: ASPIRIN 81 MG ENTERIC TABLET PO (21:06)
[2020-11-01] MEDS: ENOXAPARIN 30 MG/0.3 ML SYRINGE SUB-Q (21:08)
[2020-11-01] MEDS: ALPRAZolam (*CRX) 0.25 MG TABLET PO (23:24)
[2020-11-02 05:18] VITALS: BP 151/68; PULSE 72; RESP 16; TEMP 36.7; O2SAT 99
[2020-11-02] MEDS: ACETAMINOPHEN 500 MG TABLET 1000 MG PO ×3 (05:23→17:21)
[2020-11-02] MEDS: CARBIDOPA/LEVODOPA 25/100 MG TABLET 2 TABLET PO ×3 (06:48→16:28)
[2020-11-02] MEDS: CYCLOBENZAPRINE HCL 5 MG TABLET PO ×4 (06:48→21:44)
[2020-11-02 08:00] VITALS: PULSE 72; RESP 16; O2SAT 99
[2020-11-02] MEDS: CHOLECALCIFEROL 1,000 UNITS TABLET 1000 UNITS PO (08:08)
[2020-11-02] MEDS: DICYCLOMINE HCL 10 MG CAPSULE PO ×3 (08:08→16:28)
[2020-11-02] MEDS: LOSARTAN POTASSIUM 50 MG TABLET PO (08:08)
[2020-11-02 08:09] VITALS: PULSE 72
[2020-11-02] MEDS: FAMOTIDINE 20 MG TABLET PO ×2 (08:09→21:45)
[2020-11-02] MEDS: atenoloL 25 MG TABLET PO (08:09)
[2020-11-02] MEDS: ISOSORBIDE MONONITRATE 15 MG TAB.ER.24H PO (08:09)
[2020-11-02] MEDS: ATORVASTATIN 40 MG TABLET PO (08:09)
[2020-11-02] MEDS: OPTI-GEN TAB 1 TABLET PO (08:09)
[2020-11-02] MEDS: PARoxetine 20 MG TABLET PO ×2 (08:09→21:49)
[2020-11-02] MEDS: polyethylene glycoL 3350 17 GM POWD.PACK PO ×2 (08:10→21:50)
[2020-11-02] MEDS: ONDANSETRON HCL ODT 4 MG TABLET PO ×3 (08:10→17:21)
[2020-11-02] MEDS: traMADol HCL (*CRX) 50 MG TABLET PO (08:13)
--- NOTE | 2020-11-02 13:19 | WPDNEURORHBP ---
Subjective Date/time seen: 11/02/20 13:19 Interval history: This is a 80-year-old female with past medical history of Parkinson's disease bilateral carotid stenosis, hypertension, and chronic back pain with radiculopathy who presented to [facility] on 10/21/2020 for elective spinal decompression. Postoperatively patient experienced acute blood loss anemia, acute postoperative pain, hypokalemia, leukocytosis, urinary retention and confusion. Patient was started on Flomax on 10/22/2020 for urinary retention. Patient complains of bilateral hip pain left worse than right. Patient admits to muscle spasm and pain. Pain is improving with Flexeril and Ultram Patient's dyskinesia elicits pain to surgical site. Dr Arreola has been consulted. Pain appears better but patient is a poor communicator regarding her pain. She does complain of dizzyness this am. BP was adequate without signs of hypotension Review of Systems Review of Systems: All systems reviewed & are unremarkable except as noted in HPI and below Functional Status Ambulation Ability Ability to Ambulate 10 Feet: Minimum Assistance X 2 Ambulation Assistive Devices: Walker, Wheeled Exam Narrative: Exam Narrative: Head is normocephalic. External ocular muscles are intact. Neck is supple. Heart rate and rhythm is regular. Lungs are clear to auscultation. Abdomen is obese. Bilateral upper extremity strength are 4/5. Right lower extremity reveals a right footdrop. Left lower extremity strength is 3-4 throughout. . Back pain is less. Patient's overall endurance is better. Bed mobility is contact guard. Transfers are contact guard. Gait is contact guard with a front wheel walker 34 ft. Patient requires max assistance with lower extremity dressing but most likely is more of a Min assist. Patient tends to want the or OT to perform lower extremity activities. Toileting is at Min to contact guard. Patient shows no signs of aspiration. Const: General: cooperative, comfortable and no acute distress Nutritional Appearance: average body habitus Orientation/consciousness: oriented to person, oriented to place, oriented to time and patient oriented x3 HENMT: Head: normocephalic Ears: hearing grossly normal bilaterally General nose exam: Normal external nose present Mouth: Yes Normal oral and palatal mucosa present Eyes: Visual Robert: normal visual robert by confrontation Alignment and Position: alignment normal Eyelids: eyelids normal Conjunctivae: conjunctivae normal Sclera: sclerae normal Cornea: corneas normal Pupils: Equal, round and reactive pupils present Neck: Neck: full ROM and no lymphadenopathy Chest: Chest palpation & inspection: normal inspection of the chest Resp: Effort & Inspection: normal respiratory effort Auscultation: clear to auscultation bilaterally Cardio: Rate: regular rate Rhythm: regular rhythm Neuro: General: oriented to person, oriented to place, oriented to time, patient oriented x3, moves all extremities and Unable to assess gait Cranial nerves: Yes CN's II-XII intact bilaterally and Yes Equal, round and reactive pupils present Speech: normal speech Gait exam (Neuro): Unable to assess gait Motor exam (neuro): Abnormal motor strength present ( right foot drop) Sensory Exam: Sensory deficit (Neuro) ( distally) Deep tendon reflexes (DTR's): Right triceps reflex intensity grade: 1+, Left triceps reflex intensity grade: 1+, Rt Biceps (C5, C6): 1+, Left biceps reflex intensity grade: 1+, Right brachioradialis reflex intensity grade: 1+, Left brachioradialis reflex intensity grade: 1+, Right patellar reflex intensity grade: 1+ and Left patellar reflex intensity grade: 1+ Plantar Reflex Responses: equivocal: bilateral Psych: Appearance: grossly normal Objective Data Vital Signs Vital Signs: Vital Signs - 24 hr 11/01/20 14:00 11/01/20 20:15 11/02/20 05:18 Temperature 36.2 C L 36.5 C 36.7 C Pulse Rate 78 70 72 Respiratory Rat
[2020-11-02 14:00] VITALS: BP 117/51; PULSE 70; RESP 20; TEMP 36.6; O2SAT 97
[2020-11-02] MEDS: traMADol HCL (*CRX) 25 MG TABLET PO ×2 (14:11→21:43)
[2020-11-02 14:15] LABS: Basophils Percent Auto 0.4 % (0.2-1.2); Eosinophils Absolute Auto 0.2 K/mm3 (0-0.3); Hematocrit 33.9 % (37.0-47.0); Hemoglobin 10.7 g/dL (12.0-15.0); Immature Granulocyte Absolute 0.03 K/mm3 (0.00-0.031); Immature Granulocyte Percent A 0.4 % (0-0.5); Lymphocytes Absolute Auto 2.05 K/mm3 (0.9-3.2); Lymphocytes Percent Auto 28.3 % (18.3-44.2); Mean Corpuscular HGB Conc 31.6 g/dl (32-36); Mean Corpuscular Hemoglobin 29.8 pg (26-34); Mean Corpuscular Volume 94.4 fl (80-100); Mean Platelet Volume 9.7 fl (7.4-10.4); Monocytes Absolute Auto 0.8 K/mm3 (0.1-0.6); Monocytes Percent Auto 10.9 % (2.6-8.5); Neutrophils Absolute Auto 4.1 K/mm3 (1.3-6.7); Platelet Count Result 244 k/mm3 (150-375); Red Blood Count 3.59 M/mm3 (4.2-5.4); Red Cell Distribution Width 13.7 % (11.5-14.5); White Blood Count 7.2 K/mm3 (4.5-10.0)
[2020-11-02 14:29] LABS: Alanine Aminotransferase 7 U/L (4-35); Albumin Level 3.7 g/dL (3.5-5.1); Alkaline Phosphatase 77 U/L (38-126); Anion Gap 7 mmol/L (8-16); Aspartate Amino Transferase 20 U/L (14-36); Bilirubin,Total 0.2 mg/dL (0.2-1.3); Blood Urea Nitrogen 15 mg/dL (7-17); Calcium 8.9 mg/dL (8.4-10.2); Carbon Dioxide 28 mmol/L (22-30); Chloride 104 mmol/L (98-107); Estimated Glomerular Filt Rate > 60; Glucose 114 mg/dL (65-105); Potassium 3.8 mmol/L (3.4-5.0); Sodium 139 mmol/L (137-145)
--- NOTE | 2020-11-02 15:30 | PCPTNOTE ---
Natali Jiménez PT completed an inpatient rehab wheelchair evaluation on Kelley Walker on 11/02/2020. The patient is unable to safely and independently ambulate household distances due to their current impairments. Their diagnosis is Spinal surgery and their impairments include decreased strength, decreased endurance, spinal precautions, decreased balance, and bilateral lower extremity weakness. Mrs. Walker's weight bearing status is weight-bearing as tolerated on the bilateral lower legs. The patient demonstrates significant functional mobility limitations that impair their ability to participate in mobility-related activities of daily living (MRADLs), including toileting, feeding, dressing, grooming, and bathing in the customary locations in the home. These limitations cannot be sufficiently resolved by the use of an appropriately fitted cane or walker. It is recommended that the patient utilize a wheelchair for functional mobility within the home in order to facilitate optimal safety, independence and participation in all MRADL's and adequately access their home environment on a regular basis. The patient's home provides adequate access between rooms, maneuvering space, and surfaces to accommodate the recommended wheelchair. The use of a wheelchair for functional mobility is strongly recommended and the patient is receptive to using the wheelchair. The use of this wheelchair will significantly improve the patient's ability to participate in MRADLS and the patient will use it on a regular basis in the home. This will facilitate optimal safety, independence, and participation. The patient has demonstrated sufficient physical and mental capabilities needed to safely propel a manual wheelchair that is provided in the home during a typical day. Recommended Wheelchair Frame: standard Recommended Wheelchair Size: 18x18 Recommended Wheelchair Cushion: standard Wheelchair Leg Recommendations: - Swing away leg rests - Anti-tippers are recommended due to patient demonstrating increased risk for falls. They would benefit from anti-tippers with added safety and stabilization. Natali Jiménez PT, DPT Evaluating Therapist Date 11/02/20 I agree with and certify that the above recommendation is medically necessary. Referring Physician Date I agree with and certify that the above recommendation is medically necessary. Referring Physician Date
[2020-11-02] MEDS: TAMSULOSIN HCL 0.4 MG CAPSULE PO (17:21)
[2020-11-02 20:35] VITALS: PULSE 64; RESP 16; O2SAT 99
[2020-11-02] MEDS: ALPRAZolam (*CRX) 0.25 MG TABLET 0.5 MG PO (21:43)
[2020-11-02] MEDS: ENOXAPARIN 30 MG/0.3 ML SYRINGE SUB-Q (21:45)
[2020-11-02] MEDS: DOCUSATE SODIUM 100 MG CAPSULE PO (21:45)
[2020-11-02] MEDS: ASPIRIN 81 MG ENTERIC TABLET PO (21:46)
[2020-11-02 22:00] VITALS: BP 141/52; PULSE 64; RESP 16; TEMP 36.5; O2SAT 99
[2020-11-03] MEDS: ACETAMINOPHEN 500 MG TABLET 1000 MG PO ×4 (00:18→17:23)
[2020-11-03 05:14] LABS: Basophils Percent Auto 0.7 % (0.2-1.2); Eosinophils Absolute Auto 0.3 K/mm3 (0-0.3); Eosinophils Percent Auto 5.4 % (0-4.4); Hematocrit 33.9 % (37.0-47.0); Hemoglobin 10.7 g/dL (12.0-15.0); Immature Granulocyte Absolute 0.01 K/mm3 (0.00-0.031); Immature Granulocyte Percent A 0.2 % (0-0.5); Lymphocytes Absolute Auto 1.99 K/mm3 (0.9-3.2); Lymphocytes Percent Auto 35.5 % (18.3-44.2); Mean Corpuscular HGB Conc 31.6 g/dl (32-36); Mean Corpuscular Hemoglobin 29.7 pg (26-34); Mean Corpuscular Volume 94.2 fl (80-100); Mean Platelet Volume 9.6 fl (7.4-10.4); Monocytes Absolute Auto 0.7 K/mm3 (0.1-0.6); Monocytes Percent Auto 11.6 % (2.6-8.5); Neutrophils Absolute Auto 2.6 K/mm3 (1.3-6.7); Neutrophils Percent Auto 46.6 % (45.5-73.1); Platelet Count Result 229 k/mm3 (150-375); Red Cell Distribution Width 13.8 % (11.5-14.5); White Blood Count 5.6 K/mm3 (4.5-10.0)
[2020-11-03 05:30] LABS: Anion Gap 4 mmol/L (8-16); Blood Urea Nitrogen 12 mg/dL (7-17); Calcium 9.2 mg/dL (8.4-10.2); Carbon Dioxide 30 mmol/L (22-30); Chloride 106 mmol/L (98-107); Estimated Glomerular Filt Rate > 60; Glucose 105 mg/dL (65-105); Potassium 4.3 mmol/L (3.4-5.0); Sodium 140 mmol/L (137-145)
[2020-11-03] MEDS: CYCLOBENZAPRINE HCL 5 MG TABLET PO ×4 (05:56→20:38)
[2020-11-03] MEDS: CARBIDOPA/LEVODOPA 25/100 MG TABLET 2 TABLET PO ×3 (05:56→17:21)
[2020-11-03 06:00] VITALS: BP 167/76; PULSE 78; RESP 16; TEMP 35.8; O2SAT 100
[2020-11-03 08:53] VITALS: PULSE 78
[2020-11-03] MEDS: traMADol HCL (*CRX) 25 MG TABLET PO ×3 (08:53→18:15)
[2020-11-03] MEDS: CHOLECALCIFEROL 1,000 UNITS TABLET 1000 UNITS PO (08:53)
[2020-11-03] MEDS: atenoloL 25 MG TABLET PO (08:53)
[2020-11-03] MEDS: DICYCLOMINE HCL 10 MG CAPSULE PO ×3 (08:54→17:22)
[2020-11-03] MEDS: FAMOTIDINE 20 MG TABLET PO ×2 (08:54→20:35)
[2020-11-03] MEDS: ATORVASTATIN 40 MG TABLET PO (08:54)
[2020-11-03] MEDS: LOSARTAN POTASSIUM 50 MG TABLET PO (08:54)
[2020-11-03] MEDS: OPTI-GEN TAB 1 TABLET PO (08:54)
[2020-11-03] MEDS: ONDANSETRON HCL ODT 4 MG TABLET PO ×3 (08:55→17:23)
[2020-11-03] MEDS: ISOSORBIDE MONONITRATE 15 MG TAB.ER.24H PO (08:55)
[2020-11-03] MEDS: PARoxetine 20 MG TABLET PO ×2 (08:56→20:35)
[2020-11-03] MEDS: MICONAZOLE NITRATE 2% CREAM 30 GM TUBE 1 APPLIC TOPICAL (08:56)
--- NOTE | 2020-11-03 09:21 | WPDNEURORHBP ---
Subjective Date/time seen: 11/03/20 09:21 Interval history: This is a 80-year-old female with past medical history of Parkinson's disease bilateral carotid stenosis, hypertension, and chronic back pain with radiculopathy who presented to [facility] on 10/21/2020 for elective spinal decompression. Postoperatively patient experienced acute blood loss anemia, acute postoperative pain, hypokalemia, leukocytosis, urinary retention and confusion. Patient was started on Flomax on 10/22/2020 for urinary retention. Patient complains of bilateral hip pain left worse than right. Patient admits to muscle spasm and pain. Pain is improving with Flexeril and Ultram Patient's dyskinesia elicits pain to surgical site. Dr Arreola has been consulted. Pain appears better. Patient does not like AFO and needs a larger shoe to accommodate brace Review of Systems Review of Systems: All systems reviewed & are unremarkable except as noted in HPI and below Constitutional: Constitutional: Reports frequent falls, Reports headache(s) and Reports weakness ENT: Reports headache(s) Cardiovascular: Cardiovascular: Reports dyspnea on exertion Respiratory: Respiratory: Reports as per HPI and Reports dyspnea on exertion Genitourinary: Genitourinary: Reports urinary incontinence and Reports urinary urgency Musculoskeletal: Musculoskeletal: Reports abnormal gait, Reports back pain, Reports myalgias and Reports muscle weakness Integumentary/Breasts: Skin/Breast: Reports system reviewed and no additional complaints, except as docu Neurologic: Reports Neuro-related abnormal movements, Reports abnormal gait, Reports frequent falls, Reports headache(s), Reports Sensory deficit (Neuro) ( distally) and Reports weakness Psychiatric: Psychiatric: Reports anxiety Functional Status Ambulation Ability Ability to Ambulate 10 Feet: Minimum Assistance X 1 Ambulation Assistive Devices: Walker, Wheeled Exam Narrative: Exam Narrative: Head is normocephalic. External ocular muscles are intact. Neck is supple. Heart rate and rhythm is regular. Lungs are clear to auscultation. Abdomen is obese. Bilateral upper extremity strength are 4/5. Right lower extremity reveals a right footdrop. Left lower extremity strength is 3-4 throughout. . Back pain is less. Patient's overall endurance is better. Bed mobility is contact guard. Transfers are contact guard. Gait is contact guard with a front wheel walker Patient requires max assistance with lower extremity dressing but most likely is more of a Min assist. Patient tends to want the or OT to perform lower extremity activities. Toileting is at Min to contact guard. Patient shows no signs of aspiration. Patient is incontinent at times which is her baseline. Objective Data Vital Signs Vital Signs: Vital Signs - 24 hr 11/02/20 14:00 11/02/20 20:35 11/02/20 22:00 Temperature 36.6 C 36.5 C Pulse Rate 70 64 64 Respiratory Rate 20 16 16 Blood Pressure 117/51 L 141/52 H Pulse Oximetry 97 99 99 11/03/20 06:00 11/03/20 08:53 Temperature 35.8 C L Pulse Rate 78 78 Respiratory Rate 16 Blood Pressure 167/76 H Pulse Oximetry 100 Intake/Output Intake/Output: Intake & Output 10/31/20 11/01/20 11/02/20 11/03/20 23:59 23:59 23:59 23:59 Intake Total 1080 960 960 240 Balance 1080 960 960 240 Meds/Results Medications: Active Medications Generic Name Dose Route Start Last Admin Trade Name Freq PRN Reason Stop Dose Admin Acetaminophen 1,000 mg 10/26/20 18:00 11/03/20 05:55 Acetaminophen 500 Mg Tablet PO 1,000 mg Q6HR PARAG Administration Alprazolam 0.25 mg 10/26/20 15:02 11/01/20 23:24 Alprazolam (*Crx) 0.25 Mg Tablet PO 0.25 mg HS PRN Administration Anxiety Alprazolam 0.5 mg 10/26/20 15:02 11/02/20 21:43 Alprazolam (*Crx) 0.25 Mg Tablet PO 0.5 mg HS PRN Administration Anxiety Aspirin 81 mg 10/26/20 21:00 11/02/20 21:46 Aspirin 81 Mg Ente
--- NOTE | 2020-11-03 09:34 | PCPTNOTE ---
Natali Jiménez PT completed an inpatient rehab wheelchair evaluation on Kelley Walker on 11/03/2020. The patient is unable to safely and independently ambulate household distances due to their current impairments. Their diagnosis is Spinal surgery and their impairments include decreased strength, decreased endurance, spinal precautions, decreased balance, bilateral lower extremity weakness. Mrs. Walker's weight bearing status is weight-bearing as tolerated on the bilateral lower legs. The patient demonstrates significant functional mobility limitations that impair their ability to participate in mobility-related activities of daily living (MRADLs), including toileting, feeding, dressing, grooming, and bathing in the customary locations in the home. These limitations cannot be sufficiently resolved by the use of an appropriately fitted cane or walker. It is recommended that the patient utilize a wheelchair for functional mobility within the home in order to facilitate optimal safety, independence and participation in all MRADL's and adequately access their home environment on a regular basis. The patient's home provides adequate access between rooms, maneuvering space, and surfaces to accommodate the recommended wheelchair. The use of a wheelchair for functional mobility is strongly recommended and the patient is receptive to using the wheelchair. The use of this wheelchair will significantly improve the patient's ability to participate in MRADLS and the patient will use it on a regular basis in the home. This will facilitate optimal safety, independence, and participation. The patient has demonstrated sufficient physical and mental capabilities needed to safely propel a manual wheelchair that is provided in the home during a typical day. Recommended Wheelchair Frame: marilee-height 14 seat to floor height. Pt height 4' 11 Recommended Wheelchair Size: 18x18 Recommended Wheelchair Cushion: standard Wheelchair Leg Recommendations: - swing away leg rests - Elevating legrests are recommended because the patient has significant edema of the lower extremities that requires an elevating legrest. Elevating legrests are recommended is recommended because the patient's wheelchair is also recommended to have a reclining back. - Anti-tippers are recommended due to patient demonstrating increased risk for falls. They would benefit from anti-tippers with added safety and stabilization. Natali Jiménez DPT Evaluating Therapist Date: 11/03/20 I agree with and certify that the above recommendation is medically necessary. Referring Physician Date I agree with and certify that the above recommendation is medically necessary. Referring Physician Date
[2020-11-03 14:00] VITALS: BP 115/61; PULSE 65; RESP 18; TEMP 36.4; O2SAT 98
[2020-11-03] MEDS: TAMSULOSIN HCL 0.4 MG CAPSULE PO (17:23)
[2020-11-03] MEDS: ALPRAZolam (*CRX) 0.25 MG TABLET 0.5 MG PO (20:34)
[2020-11-03] MEDS: ASPIRIN 81 MG ENTERIC TABLET PO (20:35)
[2020-11-03] MEDS: ENOXAPARIN 30 MG/0.3 ML SYRINGE SUB-Q (20:36)
[2020-11-03] MEDS: DOCUSATE SODIUM 100 MG CAPSULE PO (20:37)
[2020-11-03] MEDS: polyethylene glycoL 3350 17 GM POWD.PACK PO (20:39)
[2020-11-03 20:40] VITALS: PULSE 72; RESP 16; O2SAT 94
[2020-11-03 21:52] VITALS: BP 124/62; PULSE 72; RESP 16; TEMP 36.2; O2SAT 94
[2020-11-04 05:48] VITALS: BP 173/59; PULSE 73; RESP 16; TEMP 36.2; O2SAT 100
[2020-11-04] MEDS: ACETAMINOPHEN 500 MG TABLET 1000 MG PO ×3 (06:09→17:15)
[2020-11-04] MEDS: CARBIDOPA/LEVODOPA 25/100 MG TABLET 2 TABLET PO ×3 (06:11→17:15)
[2020-11-04] MEDS: CYCLOBENZAPRINE HCL 5 MG TABLET PO ×4 (06:12→20:45)
[2020-11-04] MEDS: traMADol HCL (*CRX) 25 MG TABLET PO ×4 (06:39→20:44)
[2020-11-04 08:36] VITALS: PULSE 70
[2020-11-04] MEDS: CHOLECALCIFEROL 1,000 UNITS TABLET 1000 UNITS PO (08:36)
[2020-11-04] MEDS: DICYCLOMINE HCL 10 MG CAPSULE PO ×3 (08:36→17:15)
[2020-11-04] MEDS: atenoloL 25 MG TABLET PO (08:36)
[2020-11-04] MEDS: LOSARTAN POTASSIUM 50 MG TABLET PO (08:36)
[2020-11-04] MEDS: ISOSORBIDE MONONITRATE 15 MG TAB.ER.24H PO (08:36)
[2020-11-04] MEDS: PARoxetine 20 MG TABLET PO ×2 (08:36→20:45)
[2020-11-04] MEDS: OPTI-GEN TAB 1 TABLET PO (08:36)
[2020-11-04] MEDS: FAMOTIDINE 20 MG TABLET PO ×2 (08:36→20:45)
[2020-11-04] MEDS: ONDANSETRON HCL ODT 4 MG TABLET PO ×3 (08:36→17:15)
[2020-11-04] MEDS: ATORVASTATIN 40 MG TABLET PO (08:37)
[2020-11-04 14:00] VITALS: BP 149/67; PULSE 78; RESP 18; TEMP 36.3; O2SAT 97
--- NOTE | 2020-11-04 14:49 | WPDNEURORHBP ---
Subjective Date/time seen: 11/04/20 14:49 Interval history: This is a 80-year-old female with past medical history of Parkinson's disease bilateral carotid stenosis, hypertension, and chronic back pain with radiculopathy who presented to [facility] on 10/21/2020 for elective spinal decompression. Postoperatively patient experienced acute blood loss anemia, acute postoperative pain, hypokalemia, leukocytosis, urinary retention and confusion. Patient was started on Flomax on 10/22/2020 for urinary retention. Patient complains of bilateral hip pain left worse than right. Patient admits to muscle spasm and pain. Pain is improving with Flexeril and Ultram Patient's dyskinesia elicits pain to surgical site. Dr Arreola has been consulted. Pain fluctuates daily. Patient is a poor communicator when trying to describe pain. Patient's was present for caregiver training. Unfortunately, patient did not fully participate. spoke to me at length. Review of Systems Review of Systems: All systems reviewed & are unremarkable except as noted in HPI and below Functional Status Ambulation Ability Ability to Ambulate 10 Feet: Contact Guard Ambulation Assistive Devices: Walker, Wheeled Exam Narrative: Exam Narrative: Head is normocephalic. External ocular muscles are intact. Neck is supple. Heart rate and rhythm is regular. Lungs are clear to auscultation. Abdomen is obese. Bilateral upper extremity strength are 4/5. Right lower extremity reveals a right footdrop. Left lower extremity strength is 3-4 throughout. Left toe drags during gait. . Back pain is fluctuates. Patient's overall endurance is better. Bed mobility is contact guard. Transfers are contact guard. Gait is contact guard with a front wheel walker Patient requires max assistance with lower extremity dressing but most likely is more of a Min assist. Patient tends to want the or OT to perform lower extremity activities. Toileting is at Min to contact guard. Patient shows no signs of aspiration. Patient is incontinent at times which is her baseline. Objective Data Vital Signs Vital Signs: Vital Signs - 24 hr 11/03/20 20:40 11/03/20 21:52 11/04/20 05:48 Temperature 36.2 C L 36.2 C L Pulse Rate 72 72 73 Respiratory Rate 16 16 16 Blood Pressure 124/62 173/59 H Pulse Oximetry 94 94 100 11/04/20 08:36 11/04/20 14:00 Temperature 36.3 C L Pulse Rate 70 78 Respiratory Rate 18 Blood Pressure 149/67 H Pulse Oximetry 97 Intake/Output Intake/Output: Intake & Output 11/01/20 11/02/20 11/03/20 11/04/20 23:59 23:59 23:59 23:59 Intake Total 960 960 720 720 Balance 960 960 720 720 Meds/Results Medications: Active Medications Generic Name Dose Route Start Last Admin Trade Name Freq PRN Reason Stop Dose Admin Acetaminophen 1,000 mg 10/26/20 18:00 11/04/20 12:12 Acetaminophen 500 Mg Tablet PO 1,000 mg Q6HR PARAG Administration Alprazolam 0.25 mg 10/26/20 15:02 11/01/20 23:24 Alprazolam (*Crx) 0.25 Mg Tablet PO 0.25 mg HS PRN Administration Anxiety Alprazolam 0.5 mg 10/26/20 15:02 11/03/20 20:34 Alprazolam (*Crx) 0.25 Mg Tablet PO 0.5 mg HS PRN Administration Anxiety Aspirin 81 mg 10/26/20 21:00 11/03/20 20:35 Aspirin 81 Mg Enteric Tablet PO 81 mg HS PARAG Administration Atenolol 25 mg 10/27/20 09:00 11/04/20 08:36 Atenolol 25 Mg Tablet PO 25 mg DAILY PARAG Administration Atorvastatin Calcium 40 mg 10/27/20 09:00 11/04/20 08:37 Atorvastatin 40 Mg Tablet PO 40 mg DAILY PARAG Administration Carbidopa/Levodopa 2 tablet 10/28/20 07:00 11/04/20 12:13 Carbidopa/Levodopa 25/100 Mg Tablet PO 2 tablet 0700,1100,1600 PARAG Administration Cyclobenzaprine HCl 5 mg 10/29/20 10:36 Cyclobenzaprine Hcl 5 Mg Tablet PO Q8H PRN Muscle Spasm Cyclobenzaprine HCl 5 mg 10/29/20 11:30 11/04/20 12:13 Cyclobenzaprine Hcl 5 Mg Tablet PO 5 mg
[2020-11-04] MEDS: TAMSULOSIN HCL 0.4 MG CAPSULE PO (17:15)
--- NOTE | 2020-11-04 17:52 | PC.NURSE ---
sutures were removed from patient's back incision without difficulty. photos obtained and to be sent to surgeon per their request. incision looks good.
[2020-11-04] MEDS: ALPRAZolam (*CRX) 0.25 MG TABLET 0.5 MG PO (20:44)
[2020-11-04] MEDS: ASPIRIN 81 MG ENTERIC TABLET PO (20:45)
[2020-11-04] MEDS: ENOXAPARIN 30 MG/0.3 ML SYRINGE SUB-Q (20:46)
[2020-11-04] MEDS: DOCUSATE SODIUM 100 MG CAPSULE PO (20:46)
[2020-11-04 21:00] VITALS: BP 157/55; PULSE 74; RESP 18; TEMP 37.1; O2SAT 98
[2020-11-05] MEDS: ACETAMINOPHEN 500 MG TABLET 1000 MG PO ×3 (00:18→17:06)
[2020-11-05 05:27] VITALS: BP 160/58; PULSE 63; RESP 18; TEMP 37.1; O2SAT 98
[2020-11-05] MEDS: CYCLOBENZAPRINE HCL 5 MG TABLET PO ×4 (06:03→21:48)
[2020-11-05] MEDS: CARBIDOPA/LEVODOPA 25/100 MG TABLET 2 TABLET PO ×3 (06:04→17:06)
[2020-11-05 08:47] VITALS: PULSE 66
[2020-11-05] MEDS: traMADol HCL (*CRX) 50 MG TABLET PO ×2 (08:47→11:09)
[2020-11-05] MEDS: OPTI-GEN TAB 1 TABLET PO (08:47)
[2020-11-05] MEDS: atenoloL 25 MG TABLET PO (08:47)
[2020-11-05] MEDS: DICYCLOMINE HCL 10 MG CAPSULE PO ×3 (08:47→17:09)
[2020-11-05] MEDS: ATORVASTATIN 40 MG TABLET PO (08:47)
[2020-11-05] MEDS: ONDANSETRON HCL ODT 4 MG TABLET PO ×3 (08:47→17:09)
[2020-11-05] MEDS: CHOLECALCIFEROL 1,000 UNITS TABLET 1000 UNITS PO (08:47)
[2020-11-05] MEDS: LOSARTAN POTASSIUM 50 MG TABLET PO (08:47)
[2020-11-05] MEDS: PARoxetine 20 MG TABLET PO ×2 (08:48→20:47)
[2020-11-05] MEDS: ISOSORBIDE MONONITRATE 15 MG TAB.ER.24H PO (08:48)
[2020-11-05] MEDS: FAMOTIDINE 20 MG TABLET PO ×2 (08:48→20:45)
--- NOTE | 2020-11-05 13:34 | WPDNEURORHBP ---
Subjective Date/time seen: 11/05/20 13:34 Interval history: This is a 80-year-old female with past medical history of Parkinson's disease bilateral carotid stenosis, hypertension, and chronic back pain with radiculopathy who presented to [facility] on 10/21/2020 for elective spinal decompression. Postoperatively patient experienced acute blood loss anemia, acute postoperative pain, hypokalemia, leukocytosis, urinary retention and confusion. Patient was started on Flomax on 10/22/2020 for urinary retention. Patient complains of bilateral hip pain left worse than right. Patient admits to muscle spasm and pain. Pain is improving with Flexeril and Ultram Patient's dyskinesia elicits pain to surgical site. Dr Arreola has been consulted. Pain fluctuates daily. Patient is a poor communicator when trying to describe pain. Patient's was present for caregiver training yesterday. Unfortunately, patient did not fully participate. spoke to me at length. Patient is better today. Pain is less with scheduled pain meds. Review of Systems Review of Systems: All systems reviewed & are unremarkable except as noted in HPI and below Functional Status Ambulation Ability Ability to Ambulate 10 Feet: Contact Guard Ability to Ambulate 50 Feet With 2 Turns: Contact Guard Ambulation Assistive Devices: Parallel Bars and Walker, Wheeled Transfers Ability Ability to Transfer In/Out of Chair: Contact Guard Exam Narrative: Exam Narrative: Head is normocephalic. External ocular muscles are intact. Neck is supple. Heart rate and rhythm is regular. Lungs are clear to auscultation. Abdomen is obese. Bilateral upper extremity strength are 4/5. Right lower extremity reveals a right footdrop. Left lower extremity strength is 3-4 throughout. Left toe drags during gait. . Back pain is fluctuates. Patient's overall endurance is better. Bed mobility is contact guard. Transfers are contact guard. Gait is contact guard with a front wheel walker Patient requires max assistance with lower extremity dressing but most likely is more of a Min assist. Patient tends to want the or OT to perform lower extremity activities. Toileting is at Min to contact guard. Patient shows no signs of aspiration. Patient is incontinent at times which is her baseline. Due to PD transfers may vary. Mood is better. Participation better Objective Data Vital Signs Vital Signs: Vital Signs - 24 hr 11/04/20 14:00 11/04/20 21:00 11/05/20 05:27 Temperature 36.3 C L 37.1 C 37.1 C Pulse Rate 78 74 63 Respiratory Rate 18 18 18 Blood Pressure 149/67 H 157/55 H 160/58 H Pulse Oximetry 97 98 98 11/05/20 08:47 Temperature Pulse Rate 66 Respiratory Rate Blood Pressure Pulse Oximetry Intake/Output Intake/Output: Intake & Output 11/02/20 11/03/20 11/04/20 11/05/20 23:59 23:59 23:59 23:59 Intake Total 960 720 960 540 Balance 960 720 960 540 Meds/Results Medications: Active Medications Generic Name Dose Route Start Last Admin Trade Name Freq PRN Reason Stop Dose Admin Acetaminophen 1,000 mg 10/26/20 18:00 11/05/20 11:11 Acetaminophen 500 Mg Tablet PO Not Given Q6HR PARAG Alprazolam 0.25 mg 10/26/20 15:02 11/01/20 23:24 Alprazolam (*Crx) 0.25 Mg Tablet PO 0.25 mg HS PRN Administration Anxiety Alprazolam 0.5 mg 10/26/20 15:02 11/04/20 20:44 Alprazolam (*Crx) 0.25 Mg Tablet PO 0.5 mg HS PRN Administration Anxiety Aspirin 81 mg 10/26/20 21:00 11/04/20 20:45 Aspirin 81 Mg Enteric Tablet PO 81 mg HS PARAG Administration Atenolol 25 mg 10/27/20 09:00 11/05/20 08:47 Atenolol 25 Mg Tablet PO 25 mg DAILY PARAG Administration Atorvastatin Calcium 40 mg 10/27/20 09:00 11/05/20 08:47 Atorvastatin 40 Mg Tablet PO 40 mg DAILY PARAG Administration Carbidopa/Levodopa 2 tablet 10/28/20 07:00 11/05/20 11:09 Carbidopa/Levodopa 25/100 Mg Tablet PO 2 tablet 0700,1
[2020-11-05 14:00] VITALS: BP 118/54; PULSE 62; RESP 14; TEMP 36.2; O2SAT 98
[2020-11-05] MEDS: TAMSULOSIN HCL 0.4 MG CAPSULE PO (17:06)
[2020-11-05 20:00] VITALS: PULSE 72; RESP 16; O2SAT 97
[2020-11-05] MEDS: ENOXAPARIN 30 MG/0.3 ML SYRINGE SUB-Q (20:43)
[2020-11-05] MEDS: traMADol HCL (*CRX) 25 MG TABLET PO (20:43)
[2020-11-05] MEDS: DOCUSATE SODIUM 100 MG CAPSULE PO (20:43)
[2020-11-05] MEDS: polyethylene glycoL 3350 17 GM POWD.PACK PO (20:45)
[2020-11-05] MEDS: ASPIRIN 81 MG ENTERIC TABLET PO (20:45)
[2020-11-05 22:00] VITALS: BP 143/71; PULSE 72; RESP 16; TEMP 36.4; O2SAT 97
[2020-11-06] MEDS: ACETAMINOPHEN 500 MG TABLET 1000 MG PO ×4 (00:05→23:15)
[2020-11-06] MEDS: ALPRAZolam (*CRX) 0.25 MG TABLET 0.5 MG PO (01:51)
--- NOTE | 2020-11-06 04:54 | PC.NURSE ---
BRYCE Farooq asked if the patient wanted to be moved to a different room considering that her room mate was calling her name and kept her up alot last night. The patient declined and stated that she did sleep some and was going to sleep some more.
[2020-11-06] MEDS: traMADol HCL (*CRX) 25 MG TABLET PO ×2 (04:59→21:58)
[2020-11-06 05:23] VITALS: BP 173/64; PULSE 74; RESP 14; TEMP 36; O2SAT 99
[2020-11-06] MEDS: CARBIDOPA/LEVODOPA 25/100 MG TABLET 2 TABLET PO ×3 (06:58→16:57)
[2020-11-06] MEDS: CYCLOBENZAPRINE HCL 5 MG TABLET PO ×4 (06:58→21:50)
[2020-11-06] MEDS: traMADol HCL (*CRX) 50 MG TABLET PO ×2 (08:39→11:23)
[2020-11-06] MEDS: DICYCLOMINE HCL 10 MG CAPSULE PO ×3 (08:39→16:57)
[2020-11-06] MEDS: ONDANSETRON HCL ODT 4 MG TABLET PO ×3 (08:39→17:02)
[2020-11-06] MEDS: ISOSORBIDE MONONITRATE 15 MG TAB.ER.24H PO (08:39)
[2020-11-06] MEDS: PARoxetine 20 MG TABLET PO ×2 (08:39→21:50)
[2020-11-06 08:40] VITALS: PULSE 76
[2020-11-06] MEDS: OPTI-GEN TAB 1 TABLET PO (08:40)
[2020-11-06] MEDS: LOSARTAN POTASSIUM 50 MG TABLET PO (08:40)
[2020-11-06] MEDS: atenoloL 25 MG TABLET PO (08:40)
[2020-11-06] MEDS: ATORVASTATIN 40 MG TABLET PO (08:40)
[2020-11-06] MEDS: CHOLECALCIFEROL 1,000 UNITS TABLET 1000 UNITS PO (08:40)
[2020-11-06] MEDS: FAMOTIDINE 20 MG TABLET PO ×2 (08:40→21:50)
--- NOTE | 2020-11-06 10:28 | WPDNEURORHBP ---
Subjective Date/time seen: 11/06/20 10:28 Interval history: This is a 80-year-old female with past medical history of Parkinson's disease bilateral carotid stenosis, hypertension, and chronic back pain with radiculopathy who presented to [facility] on 10/21/2020 for elective spinal decompression. Postoperatively patient experienced acute blood loss anemia, acute postoperative pain, hypokalemia, leukocytosis, urinary retention and confusion. Patient was started on Flomax on 10/22/2020 for urinary retention. Patient complains of bilateral hip pain left worse than right. Patient admits to muscle spasm and pain. Pain is improving with Flexeril and Ultram Patient's dyskinesia elicits pain to surgical site. Dr Arreola has been consulted. Pain fluctuates daily. Patient is a poor communicator when trying to describe pain. Patient's was present for caregiver training yesterday. Unfortunately, patient did not fully participate. spoke to me at length. Patient is better today. Pain is less with scheduled pain meds. patient has prescriptions for tramadol by the surgeon. Review of Systems Review of Systems: All systems reviewed & are unremarkable except as noted in HPI and below Functional Status Ambulation Ability Ability to Ambulate 10 Feet: Contact Guard Ability to Ambulate 50 Feet With 2 Turns: Contact Guard Ambulation Assistive Devices: Walker, Wheeled Transfers Ability Ability to Transfer In/Out of Chair: Contact Guard Exam Narrative: Exam Narrative: Head is normocephalic. External ocular muscles are intact. Neck is supple. Heart rate and rhythm is regular. Lungs are clear to auscultation. Abdomen is obese. Bilateral upper extremity strength are 4/5. Right lower extremity reveals a right footdrop. Left lower extremity strength is 3-4 throughout. Left toe drags during gait. . Back pain is fluctuates. Patient's overall endurance is better. Bed mobility is supervision. Transfers are contact guard to supervison. Gait is contact guard with a front wheel walker Due to PD transfers may vary. Mood is better. Participation better Objective Data Vital Signs Vital Signs: Vital Signs - 24 hr 11/05/20 14:00 11/05/20 20:00 11/05/20 22:00 Temperature 36.2 C L 36.4 C L Pulse Rate 62 72 72 Respiratory Rate 14 16 16 Blood Pressure 118/54 L 143/71 H Pulse Oximetry 98 97 97 11/06/20 05:23 11/06/20 08:40 Temperature 36.0 C L Pulse Rate 74 76 Respiratory Rate 14 Blood Pressure 173/64 H Pulse Oximetry 99 Intake/Output Intake/Output: Intake & Output 11/03/20 11/04/20 11/05/20 11/06/20 23:59 23:59 23:59 23:59 Intake Total 720 960 780 240 Balance 720 960 780 240 Meds/Results Medications: Active Medications Generic Name Dose Route Start Last Admin Trade Name Freq PRN Reason Stop Dose Admin Acetaminophen 1,000 mg 10/26/20 18:00 11/06/20 06:58 Acetaminophen 500 Mg Tablet PO 1,000 mg Q6HR PARAG Administration Alprazolam 0.25 mg 10/26/20 15:02 11/01/20 23:24 Alprazolam (*Crx) 0.25 Mg Tablet PO 0.25 mg HS PRN Administration Anxiety Alprazolam 0.5 mg 10/26/20 15:02 11/06/20 01:51 Alprazolam (*Crx) 0.25 Mg Tablet PO 0.5 mg HS PRN Administration Anxiety Aspirin 81 mg 10/26/20 21:00 11/05/20 20:45 Aspirin 81 Mg Enteric Tablet PO 81 mg HS PARAG Administration Atenolol 25 mg 10/27/20 09:00 11/06/20 08:40 Atenolol 25 Mg Tablet PO 25 mg DAILY PARAG Administration Atorvastatin Calcium 40 mg 10/27/20 09:00 11/06/20 08:40 Atorvastatin 40 Mg Tablet PO 40 mg DAILY PARAG Administration Carbidopa/Levodopa 2 tablet 10/28/20 07:00 11/06/20 06:58 Carbidopa/Levodopa 25/100 Mg Tablet PO 2 tablet 0700,1100,1600 PARAG Administration Cyclobenzaprine HCl 5 mg 10/29/20 10:36 Cyclobenzaprine Hcl 5 Mg Tablet PO Q8H PRN Muscle Spasm Cyclobenzaprine HCl 5 mg 10/29/20 11:30 11/06/20 06:58 Cyclobenzaprine H
[2020-11-06 14:00] VITALS: BP 138/72; PULSE 68; RESP 18; TEMP 36.6; O2SAT 97
[2020-11-06] MEDS: TAMSULOSIN HCL 0.4 MG CAPSULE PO (17:02)
[2020-11-06 20:00] VITALS: PULSE 75; RESP 18; O2SAT 95
[2020-11-06 21:35] VITALS: BP 137/69; PULSE 75; RESP 18; TEMP 36.4; O2SAT 95
[2020-11-06] MEDS: ASPIRIN 81 MG ENTERIC TABLET PO (21:50)
[2020-11-06] MEDS: polyethylene glycoL 3350 17 GM POWD.PACK PO (21:50)
[2020-11-06] MEDS: DOCUSATE SODIUM 100 MG CAPSULE PO (21:50)
[2020-11-06] MEDS: ENOXAPARIN 30 MG/0.3 ML SYRINGE SUB-Q (21:50)
[2020-11-07 06:00] VITALS: BP 175/64; PULSE 77; RESP 16; TEMP 36.4; O2SAT 98
[2020-11-07 06:05] VITALS: BP 172/65
[2020-11-07 06:22] VITALS: PULSE 77
[2020-11-07] MEDS: atenoloL 25 MG TABLET PO (06:22)
[2020-11-07] MEDS: LOSARTAN POTASSIUM 50 MG TABLET PO (06:22)
[2020-11-07] MEDS: CARBIDOPA/LEVODOPA 25/100 MG TABLET 2 TABLET PO ×2 (06:42→11:07)
[2020-11-07] MEDS: ACETAMINOPHEN 500 MG TABLET 1000 MG PO (06:42)
[2020-11-07] MEDS: CYCLOBENZAPRINE HCL 5 MG TABLET PO ×2 (06:42→11:07)
[2020-11-07] MEDS: ATORVASTATIN 40 MG TABLET PO (08:17)
[2020-11-07] MEDS: DICYCLOMINE HCL 10 MG CAPSULE PO ×2 (08:17→11:07)
[2020-11-07] MEDS: traMADol HCL (*CRX) 50 MG TABLET PO ×2 (08:17→11:07)
[2020-11-07] MEDS: ONDANSETRON HCL ODT 4 MG TABLET PO ×2 (08:17→11:07)
[2020-11-07] MEDS: PARoxetine 20 MG TABLET PO (08:17)
[2020-11-07] MEDS: OPTI-GEN TAB 1 TABLET PO (08:17)
[2020-11-07] MEDS: CHOLECALCIFEROL 1,000 UNITS TABLET 1000 UNITS PO (08:17)
[2020-11-07] MEDS: ISOSORBIDE MONONITRATE 15 MG TAB.ER.24H PO (08:17)
[2020-11-07] MEDS: FAMOTIDINE 20 MG TABLET PO (08:17)
--- NOTE | 2020-11-07 10:05 | PM.DS ---
DS: Admitting Diagnosis Admitting Diagnosis Admitting Diagnosis: lumbar myelopathy and radiculopathy of left lower extremity. Right foot drop. DS: Discharge Diagnosis Discharge Diagnosis (1) Lumbar myelopathy: Code(s): G95.9 - Disease of spinal cord, unspecified Status: Acute Assessment and Plan: PTOT (2) S/P spinal fusion: Code(s): Z98.1 - Arthrodesis status Status: Acute Assessment and Plan: PTOT (3) Footdrop: Code(s): M21.379 - Foot drop, unspecified foot Status: Acute Assessment and Plan: AFO present . Patient will require a larger shoe on the R to accommodate the brace. Patient is reluctant to use brace. Patient is dragging L toe. Patient may benefit from bilateral AFOs. Script was written for L AFO Spoke with daughter Bernie (4) Parkinsons disease: Code(s): G20 - Parkinson's disease Status: Acute Assessment and Plan: Neuro consult. Patient on Sinemt 2 tabs TID with meals Patient takes Zofran for nausea due to Sinemet (5) Left foot drop: Code(s): M21.372 - Foot drop, left foot Status: Acute Assessment and Plan: Obtain left AFO DS: Summary Hospital Course Hospital Course: see dictation Time Spent with Patient Time attestation: Total time spent providing and/or coordinating discharge services: The etiologic diagnosis is lumbar radiculopathy/myelopathy I saw this patient [id number] on 10/26/2020 thru 11/07/20 The patient is a 80-year-old female with past medical history of Parkinson's disease, bilateral carotid stenosis, hypertension, chronic back pain with radiculopathy to the LLE, right foot drop. Patient went to [facility] on 10/21/2020 for an elective spinal decompression. Workup revealed evidence of severe spinal stenosis affecting the T12 and L1 level. On 10/20/2020 the patient underwent a T11 through T12, T12-L1 posterior spinal decompression for central canal, lateral recess and foraminal stenosis. Patient also underwent a T12-L1 partial medial facetectomies. Hospital course patient received Ancef times 24 hours for postop. REGAN drain was removed on 10/22/2020. Postoperatively patient experienced acute blood loss anemia, acute postoperative pain, hypokalemia, leukocytosis, urinary retention, and postop encephalopathy. Patient was discharged to rehab on aspirin 81 mg daily. Follow-up will be with Dr. Claudio Rehab hospital course:. Patient experienced incisional pain that was treated with tramadol 50 mg before a.m. and p.m. therapies. Patient also required Flexeril for muscle spasms. At times, patient needed encouragement to perform lower extremity ADLs. was present for family training. ADMISSION FUNCTION: Eating was SET UP ONLY Oral Care was partial to moderate assistance Toileting Hygiene was substantial to maximal assistance Shower/Bathing was substantial to maximal assistance Upper Body Dressing was partial to moderate assistance Lower Body Dressing was substantial to maximal assistance Donning/Kyle Footwear was substantial to maximal assistance Rolling Left and Right was partial to moderate assist Sit to Lying was partial to moderate assistance Lying to Sitting was partial to moderate assistance Sit to Stand was partial to moderate assistance Bed to Chair Transfers were partial to moderate assist Toilet Transfers were partial to moderate assistance Walking was not evaluate Wheelchair Mobility was not tested Stairs were not tested GOALS: Eating [INDEPENDENT] Oral Care [INDEPENDENT] Toileting Hygiene supervision Shower/Bathing supervision Upper Body Dressing setup Lower Body Dressing supervision Donning/Kyle Footwear supervision Rolling Left and Right INDEPENDENT Sit to Lying INDEPENDENT Lying to Sitting INDEPENDENT Sit to Stand supervision Bed to Chair Transfers supervision Toilet Transfers supervision Car Transfers s
--- NOTE | 2020-11-07 14:01 | PCPTNOTE ---
On 11-06-2020, patient utilized a internet marketing manager to warehouse order picker object off of floor.
== END 2020-11-07 12:50 | disposition home health service (06) | DRG 560 ==
PROVIDERS: Admitting Provider Physical Medicine & Rehabilitation; PCP Family Medicine; Visit Provider Physical Medicine & Rehabilitation
DX: Z47.89 Encounter for other orthopedic aftercare (principal); M51.06 Intervertebral disc disorders with myelopathy, lumbar region; D62 Acute posthemorrhagic anemia; M54.16 Radiculopathy, lumbar region; M21.371 Foot drop, right foot; M48.05 Spinal stenosis, thoracolumbar region; E78.5 Hyperlipidemia, unspecified; F41.9 Anxiety disorder, unspecified; G20 Parkinson's disease; G47.33 Obstructive sleep apnea (adult) (pediatric); I65.23 Occlusion and stenosis of bilateral carotid arteries; I10 Essential (primary) hypertension; I25.10 Atherosclerotic heart disease of native coronary artery without angina pectoris; J44.9 Chronic obstructive pulmonary disease, unspecified; K21.9 Gastro-esophageal reflux disease without esophagitis; R32 Unspecified urinary incontinence; R33.9 Retention of urine, unspecified; Z98.1 Arthrodesis status
CPT/HCPCS: 36415; 80048; 80053; 85025; 92523; 92610; 97110; 97116; 97161; 97166; 97530; 97535; 97542; A9270; J1650